=== PATIENT | female | born 1955 | race Caucasian/White ===

== ENCOUNTER 2016-09-24 07:28 | Emergency (ER) | payer OTHER ==
[~2016-09-24] VITALS: Ht 167.6 cm; Wt 167.0 kg
[~2016-09-24 07:28] MED LIST: ALBU1.25 NEB; ALBU18HF INH; ALPR1TAB2 PO; AMLO5TAB2 PO; ATOR40TA78 PO; CEFD300C2 PO; CIPR500T3 PO; CIPR750T PO; DOXY100C2 PO; FLUT1BLS INH; FURO80TA77 PO; HYDR-3241 PO; HYDR-3341 PO; INSU100I18 SQ-INSULIN; INSU100I28 SQ-INSULIN; METF500T PO; POTA20TA6 PO; PRED20TA PO; PRED5TAB PO; SERT25TA PO
[2016-09-24] MEDS ORDERED: BUDE10.2 INH (08:10)
[2016-09-24] MEDS ORDERED: methylPREDNISolone SOD SUCC 125 MG/2 ML ONE (08:37)
[2016-09-24] MEDS ORDERED: ALBUTEROL/IPRATROPIUM 2.5MG/0.5MG, 3 ML ONE (08:45)
[2016-09-24] MEDS ORDERED: methylPREDNISolone SOD SUCC 125 MG/2 ML IVP ONE (09:00)
[2016-09-24 09:06] LABS: RAPID INFLUENZA A Negative (Negative); RAPID INFLUENZA B Negative (Negative)
[2016-09-24 09:09] LABS: HEMOGLOBIN 13.4 g/dL (11.7-16.4)
[2016-09-24 09:23] LABS: ASPARTATE AMINO TRANSFERASE 12 U/L (15-37); BLOOD UREA NITROGEN 10 mg/dL (7-18)
[2016-09-24] MEDS ORDERED: ALBUTEROL/IPRATROPIUM 2.5MG/0.5MG, 3 ML NEB ONE (09:30)
[2016-09-24] MEDS ORDERED: SODIUM CHLORIDE FLUSH 10ML SYR IVF ONE (09:30)
[2016-09-24] MEDS ORDERED: LORazepam 1MG TABLET ONE (09:56)
[2016-09-24] MEDS ORDERED: LORazepam 1MG TABLET PO ONE (10:00)
[2016-09-24] MEDS ORDERED: CEFTRIAXONE PMX 1GM/50ML 50 ML ONE (11:26)
[2016-09-24] MEDS ORDERED: CEFTRIAXONE PMX 1GM/50ML 50 ML IV ONE (11:30)
[2016-09-24 11:34] VITALS: BP 133/78
== END 2016-09-24 12:39 | disposition home or self-care (01) ==
LOC: ED 10:32
DX: J45.901 Unspecified asthma with (acute) exacerbation (principal); J44.1 Chronic obstructive pulmonary disease with (acute) exacerbation; J01.00 Acute maxillary sinusitis, unspecified; J20.8 Acute bronchitis due to other specified organisms; E11.9 Type 2 diabetes mellitus without complications
CPT/HCPCS: 36415; 71010; 80053; 85025; 87040; 87081; 87400; 87880; 94640; 96365; 96375; 99285; J0696; J2930; J7620

== ENCOUNTER → 2016-10-13 | Outpatient (CLI) | payer OTHER, MEDICARE ==
[~2016-10-13] MED LIST changes: +BUDE10.2 INH
== END | disposition home or self-care (01) ==
LOC: CARD 14:10
PROVIDERS: ATTEND Nurse Practitioner
DX: J44.9 Chronic obstructive pulmonary disease, unspecified (principal)
CPT/HCPCS: 94060; 94620; 94726; 94729

== ENCOUNTER 2017-03-14 15:09 | Inpatient (IN) | payer MEDICARE, OTHER ==
[~2017-03-14] VITALS: Ht 167.6 cm; Wt 178.0 kg
[~2017-03-14 15:09] MED LIST changes: -CEFD300C2 PO; +CEFD300C37 PO
[2017-03-14] MEDS ORDERED: OXYC20TA2 PO (15:36)
[2017-03-14] MEDS ORDERED: ATOR10TA PO (15:36)
[2017-03-14] MEDS ORDERED: METF500T4 PO (15:36)
[2017-03-14] MEDS ORDERED: FAMOTIDINE 20 MG/2 ML ONE (15:45)
[2017-03-14] MEDS ORDERED: ONDANSETRON 2MG/ML, 2ML ONE (15:45)
[2017-03-14] MEDS ORDERED: FAMOTIDINE 20 MG/2 ML IVP ONE (16:00)
[2017-03-14] MEDS ORDERED: ONDANSETRON 2MG/ML, 2ML IVPush ONE (16:00)
[2017-03-14] MEDS ORDERED: SODIUM CHLORIDE FLUSH 10ML SYR IVF ONE (16:00)
[2017-03-14] MEDS ORDERED: SODIUM CHLORIDE 0.9% 1,000ML IVBOLUS ONE (16:00)
[2017-03-14 16:15] LABS: HEMATOCRIT 43.7 % (34.6-47.8); HEMOGLOBIN 14.4 g/dL (11.7-16.4); WHITE BLOOD COUNT 16.5 x10^3/uL (3.4-10)
[2017-03-14 16:27] LABS: BLOOD UREA NITROGEN 15 mg/dL (7-18)
[2017-03-14 16:31] LABS: ASPARTATE AMINO TRANSFERASE 23 U/L (15-37)
[2017-03-14] MEDS ORDERED: METRONIDAZOLE PMX 500MG/100ML 100 ML ONE ×2 (17:18)
[2017-03-14] MEDS ORDERED: CEFTRIAXONE PMX 1GM/50ML 50 ML ONE (17:19)
[2017-03-14] MEDS ORDERED: LORazepam 2 MG/ML, 1ML ONE (17:19)
[2017-03-14] MEDS ORDERED: CEFTRIAXONE PMX 1GM/50ML 50 ML IV ONE (17:30)
[2017-03-14] MEDS ORDERED: LORazepam 2 MG/ML, 1ML IVPush ONE (17:30)
[2017-03-14] MEDS ORDERED: METRONIDAZOLE PMX 500MG/100ML 100 ML IV ONE (17:30)
[2017-03-14] MEDS ORDERED: ONDANSETRON ODT 4 MG PO PRN (18:30)
[2017-03-14] MEDS ORDERED: LABETALOL 5MG/ML, 20ML IVPush PRN (18:30)
[2017-03-14] MEDS ORDERED: morphine SULFATE 10 MG/ML, 1ML IVPush PRN (18:30)
[2017-03-14] MEDS ORDERED: GUAIFENESIN/DM 200-20MG, 10ML UDC PO PRN (18:30)
[2017-03-14] MEDS ORDERED: ONDANSETRON 2MG/ML, 2ML IVPush PRN (18:30)
[2017-03-14 19:45] VITALS: BP 135/95
[2017-03-14 19:56] VITALS: BP 136/95
[2017-03-14] MEDS ORDERED: OXYCODONE MC SCH (20:30)
[2017-03-14] MEDS ORDERED: TEMPLATE NON-FORMULARY MED. (Budesonide/Formoterol Fumarate (Symbicort 160-4.5 Mcg Inhaler INH SCH (21:00)
[2017-03-14] MEDS ORDERED: ALBUTEROL SULFATE 2.5 MG/3 ML NPPB PRN (21:00)
[2017-03-14] MEDS: TEMPLATE NON-FORMULARY MED. (Albuterol Sulfate (Ventolin Hfa) 2 PUFFS) INH SCH (21:00)
[2017-03-14] MEDS: CEFTRIAXONE PMX 2GM/50ML 50 ML IV SCH (21:01)
[2017-03-14] MEDS: SODIUM CHLORIDE 0.9% 1,000 ML IV SCH (21:01)
[2017-03-14] MEDS: ENOXAPARIN 40 MG/0.4 ML SQ SCH (21:32)
[2017-03-14] MEDS: ATORVASTATIN 10 MG TABLET PO SCH (21:33)
[2017-03-14] MEDS: OXYcodone IR 5MG TABLET PO PRN (21:33)
[2017-03-14] MEDS: INSULIN ASPART 100 UNITS/ML, PEN SQ-INSULIN SCH (21:43)
[2017-03-15 01:10] VITALS: BP 137/81
[2017-03-15] MEDS: ALBUTEROL SULFATE 2.5 MG/3 ML NPPB SCH ×5 (01:59→19:45)
[2017-03-15] MEDS: TEMPLATE NON-FORMULARY MED. (Albuterol Sulfate (Ventolin Hfa) 2 PUFFS) INH SCH ×4 (06:00→20:38)
[2017-03-15] MEDS: SODIUM CHLORIDE 0.9% 1,000 ML IV SCH ×2 (06:29→14:51)
[2017-03-15 07:57] VITALS: BP 134/80
[2017-03-15] MEDS: SERTRALINE 100MG TABLET PO SCH (08:17)
[2017-03-15] MEDS: INSULIN ASPART 100 UNITS/ML, PEN SQ-INSULIN SCH ×4 (08:17→20:41)
[2017-03-15 09:07] LABS: HEMATOCRIT 39.1 % (34.6-47.8); WHITE BLOOD COUNT 11.6 x10^3/uL (3.4-10)
[2017-03-15] MEDS: FLUTICASONE/VILANTEROL 200-25MCG/INH INH SCH (09:26)
[2017-03-15] MEDS: INSULIN DETEMIR 100 UNITS/ML, PEN SQ-INSULIN SCH ×2 (09:27→20:40)
[2017-03-15] MEDS: OXYcodone IR 5MG TABLET PO PRN ×2 (11:26→20:41)
[2017-03-15 12:12] VITALS: BP 125/56
[2017-03-15] MEDS: ENOXAPARIN 40 MG/0.4 ML SQ SCH (17:20)
[2017-03-15 18:35] VITALS: BP 125/71
[2017-03-15] MEDS: CEFTRIAXONE PMX 2GM/50ML 50 ML IV SCH (19:13)
[2017-03-15] MEDS: ATORVASTATIN 10 MG TABLET PO SCH (20:39)
[2017-03-16] MEDS: SODIUM CHLORIDE 0.9% 1,000 ML IV SCH ×2 (00:33→10:41)
[2017-03-16 02:10] VITALS: BP 110/61
[2017-03-16] MEDS: TEMPLATE NON-FORMULARY MED. (Albuterol Sulfate (Ventolin Hfa) 2 PUFFS) INH SCH ×4 (04:56→19:53)
[2017-03-16 06:01] LABS: HEMATOCRIT 40.1 % (34.6-47.8); HEMOGLOBIN 13.3 g/dL (11.7-16.4); WHITE BLOOD COUNT 10.5 x10^3/uL (3.4-10)
[2017-03-16 06:05] LABS: BLOOD UREA NITROGEN 14 mg/dL (7-18)
[2017-03-16] MEDS: ALBUTEROL SULFATE 2.5 MG/3 ML NPPB SCH ×3 (07:00→18:52)
[2017-03-16] MEDS: SERTRALINE 100MG TABLET PO SCH (07:44)
[2017-03-16] MEDS: FLUTICASONE/VILANTEROL 200-25MCG/INH INH SCH (07:45)
[2017-03-16] MEDS: INSULIN ASPART 100 UNITS/ML, PEN SQ-INSULIN SCH ×4 (07:46→20:22)
[2017-03-16] MEDS: INSULIN DETEMIR 100 UNITS/ML, PEN SQ-INSULIN SCH ×2 (07:47→20:22)
[2017-03-16 08:20] VITALS: BP 119/66
[2017-03-16] MEDS: OXYcodone IR 5MG TABLET PO PRN ×2 (08:36→20:21)
[2017-03-16 15:04] VITALS: BP 123/51
[2017-03-16] MEDS ORDERED: SODIUM CHLORIDE 0.9% 1,000 ML IV SCH (17:00)
[2017-03-16] MEDS: CEFTRIAXONE PMX 2GM/50ML 50 ML IV SCH (18:21)
[2017-03-16] MEDS: ENOXAPARIN 40 MG/0.4 ML SQ SCH (18:21)
[2017-03-16 20:19] VITALS: BP 128/55
[2017-03-16] MEDS: ATORVASTATIN 10 MG TABLET PO SCH (20:21)
[2017-03-17] MEDS: ALBUTEROL SULFATE 2.5 MG/3 ML NEB PRN ×2 (01:18→16:40)
[2017-03-17 04:10] VITALS: BP 140/67
[2017-03-17 04:41] LABS: HEMATOCRIT 37.9 % (34.6-47.8); HEMOGLOBIN 12.5 g/dL (11.7-16.4); WHITE BLOOD COUNT 10.9 x10^3/uL (3.4-10)
[2017-03-17 05:12] LABS: ASPARTATE AMINO TRANSFERASE 25 U/L (15-37); BLOOD UREA NITROGEN 12 mg/dL (7-18)
[2017-03-17] MEDS: TEMPLATE NON-FORMULARY MED. (Albuterol Sulfate (Ventolin Hfa) 2 PUFFS) INH SCH ×4 (05:19→19:46)
[2017-03-17 07:08] VITALS: BP 132/82
[2017-03-17] MEDS: ALBUTEROL SULFATE 2.5 MG/3 ML NPPB SCH ×2 (08:00→20:08)
[2017-03-17] MEDS: SERTRALINE 100MG TABLET PO SCH (08:38)
[2017-03-17] MEDS: OXYcodone IR 5MG TABLET PO PRN ×2 (08:39→21:04)
[2017-03-17] MEDS: FLUTICASONE/VILANTEROL 200-25MCG/INH INH SCH (08:39)
[2017-03-17] MEDS: INSULIN ASPART 100 UNITS/ML, PEN SQ-INSULIN SCH ×4 (08:40→19:54)
[2017-03-17] MEDS: INSULIN DETEMIR 100 UNITS/ML, PEN SQ-INSULIN SCH ×2 (08:41→19:54)
[2017-03-17 13:26] VITALS: BP 145/62
[2017-03-17] MEDS: ENOXAPARIN 40 MG/0.4 ML SQ SCH (17:32)
[2017-03-17] MEDS: CEFTRIAXONE PMX 2GM/50ML 50 ML IV SCH (18:28)
[2017-03-17] MEDS: ATORVASTATIN 10 MG TABLET PO SCH (19:53)
[2017-03-17 20:15] VITALS: BP 122/58
[2017-03-18 01:00] VITALS: BP 146/83
[2017-03-18] MEDS: TEMPLATE NON-FORMULARY MED. (Albuterol Sulfate (Ventolin Hfa) 2 PUFFS) INH SCH ×2 (04:39→11:00)
[2017-03-18 05:49] LABS: HEMATOCRIT 37.1 % (34.6-47.8); HEMOGLOBIN 12.5 g/dL (11.7-16.4); WHITE BLOOD COUNT 9.5 x10^3/uL (3.4-10)
[2017-03-18 06:01] LABS: BLOOD UREA NITROGEN 10 mg/dL (7-18)
[2017-03-18 06:05] LABS: ASPARTATE AMINO TRANSFERASE 24 U/L (15-37)
[2017-03-18 06:50] VITALS: BP 138/69
[2017-03-18] MEDS ORDERED: CIPR500T3 PO (07:19)
[2017-03-18] MEDS ORDERED: POTA10CA PO (07:19)
[2017-03-18] MEDS ORDERED: FURO40TA6 PO (07:19)
[2017-03-18] MEDS ORDERED: METR500T PO (07:19)
[2017-03-18] MEDS ORDERED: FURO80TA77 PO (07:22)
[2017-03-18] MEDS ORDERED: OXYC20TA2 PO (07:22)
[2017-03-18] MEDS ORDERED: CEFD300C37 PO (07:27)
[2017-03-18] MEDS ORDERED: FUROSEMIDE 20 MG/2 ML IV ONE (07:30)
[2017-03-18] MEDS: SERTRALINE 100MG TABLET PO SCH (08:34)
[2017-03-18] MEDS: FLUTICASONE/VILANTEROL 200-25MCG/INH INH SCH (08:34)
[2017-03-18] MEDS: INSULIN ASPART 100 UNITS/ML, PEN SQ-INSULIN SCH ×2 (08:35→12:05)
[2017-03-18] MEDS: INSULIN DETEMIR 100 UNITS/ML, PEN SQ-INSULIN SCH (08:35)
[2017-03-18] MEDS: OXYcodone IR 5MG TABLET PO PRN (08:58)
[2017-03-18] MEDS ORDERED: FUROSEMIDE 40 MG TABLET PO SCH (09:00)
[2017-03-18] MEDS: ALBUTEROL SULFATE 2.5 MG/3 ML NPPB SCH (09:16)
[2017-03-18] MEDS ORDERED: POTA10TA5 PO (13:17)
[2017-03-18] MEDS ORDERED: PRED20TA PO (15:03)
== END 2017-03-18 13:38 | disposition home or self-care (01) | DRG 291 ==
LOC: ED 18:53 → EDIP 19:57 → 4WST 20:09 → DCLOUNGE 03-18 12:55
PROVIDERS: ADMIT Hospitalist; ATTEND Hospitalist
PROC: 0T9B70Z Drainage of Bladder with Drainage Device, Via Natural or Artificial Opening (ICD-10-PCS; principal; 2017-03-14)
DX: I11.0 Hypertensive heart disease with heart failure (principal); J96.01 Acute respiratory failure with hypoxia; E86.0 Dehydration; J44.1 Chronic obstructive pulmonary disease with (acute) exacerbation; Z99.81 Dependence on supplemental oxygen; Z68.44 Body mass index [BMI] 60.0-69.9, adult; N10 Acute pyelonephritis; I50.30 Unspecified diastolic (congestive) heart failure; E11.9 Type 2 diabetes mellitus without complications; E78.5 Hyperlipidemia, unspecified; E66.01 Morbid (severe) obesity due to excess calories; F32.9 Major depressive disorder, single episode, unspecified; F41.9 Anxiety disorder, unspecified; M19.90 Unspecified osteoarthritis, unspecified site; Z90.710 Acquired absence of both cervix and uterus; R19.7 Diarrhea, unspecified
CPT/HCPCS: 36415; 71010; 80048; 80053; 80061; 81001; 82040; 82962; 83036; 83690; 83735; 85025; 87077; 87086; 87186; 87324; 89055; 93306; 94640; 96361; 96365; 96368; 96375; J0696; J1650; J1815; J2405; J7613; J1940; J2060; J7030; S0028

== ENCOUNTER 2017-06-02 18:14 | Inpatient (IN) | payer MEDICARE ==
[~2017-06-02] VITALS: Ht 167.6 cm; Wt 169.4 kg
[~2017-06-02 18:14] MED LIST changes: +ATOR10TA PO; +FURO40TA6 PO; +METF500T4 PO; +METR500T PO; +OXYC20TA2 PO; +POTA10CA PO; +POTA10TA5 PO
[2017-06-02] MEDS ORDERED: ALBUTEROL/IPRATROPIUM 2.5MG/0.5MG, 3 ML ONE ×2 (18:34→23:30)
[2017-06-02 18:51] LABS: MEAN CORPUSCULAR HEMOGLOBIN 29.6 pg (27.0-34.8); MEAN CORPUSCULAR HGB CONC 32.7 g/dL (32.4-35.8); MEAN CORPUSCULAR VOLUME 90.5 fL (80-100); MEAN PLATELET VOLUME 8.3 fL (7.4-10.4); PLATELET COUNT 321 x10^3/uL (130-400); RED CELL DISTRIBUTION WIDTH 14.1 % (9.6-15.2)
[2017-06-02] MEDS ORDERED: METF500T4 PO (18:53)
[2017-06-02 19:04] LABS: ALBUMIN 3.4 g/dL (3.4-5.0); ANION GAP 13 mmol/L (5-15); CALCIUM 9.1 mg/dL (8.5-10.1); CHLORIDE 99 mmol/L (98-107); CREATININE 0.86 mg/dL (0.55-1.02)
[2017-06-02 19:08] LABS: TROPONIN I < 0.015 ng/mL (0.000-0.045)
[2017-06-02 19:17] LABS: BASOPHILS # (AUTO) 0.09 x10^3/uL (0-0.1); BASOPHILS % (AUTO) 1 % (0-1); EOSINOPHILS # (AUTO) 0.12 x10^3/uL (0-0.4); EOSINOPHILS % (AUTO) 1 % (1-7); LYMPHOCYTES # (AUTO) 2.04 x10^3/uL (1-3.4); LYMPHOCYTES % (AUTO) 11 % (22-44); MD SCAN; MONOCYTES # (AUTO) 0.91 x10^3/uL (0.2-0.8); MONOCYTES % (AUTO) 5 % (2-9); NEUTROPHILS # (AUTO) 16.06 x10^3/uL (1.8-6.8); NEUTROPHILS % (AUTO) 84 % (42-75)
[2017-06-02] MEDS ORDERED: SODIUM CHLORIDE 0.9% 1,000ML IVBOLUS ONE ×2 (19:30→21:30)
[2017-06-02] MEDS ORDERED: CEFTRIAXONE PMX 1GM/50ML 50 ML IV ONE (20:00)
[2017-06-02] MEDS ORDERED: AZITHROMYCIN 500 MG in SODIUM CHLORIDE 0.9% 250 ML IV ONE (20:00)
[2017-06-02] MEDS ORDERED: CEFTRIAXONE PMX 1GM/50ML 50 ML ONE (20:07)
[2017-06-02] MEDS ORDERED: OMNIPAQUE 350 MG/ML, 100ML BOTTLE ONE (20:47)
[2017-06-02] MEDS ORDERED: SODIUM CHLORIDE 0.9% 1,000 ML IV ONE (21:27)
[2017-06-02] MEDS ORDERED: MORPHINE SULFATE 4 MG/ML, 1ML IVPush PRN (21:30)
[2017-06-02] MEDS ORDERED: ONDANSETRON 2MG/ML, 2ML IVPush PRN (21:30)
[2017-06-02] MEDS ORDERED: POLYETHYLENE GLYCOL 17 GM PACKET PO PRN (22:00)
[2017-06-02] MEDS ORDERED: ENALAPRILAT 1.25 MG/ML, 2ML IVPush PRN (22:00)
[2017-06-02] MEDS ORDERED: GUAIFENESIN/DM 200-20MG, 10ML UDC PO PRN (22:00)
[2017-06-02] MEDS ORDERED: ACETAMINOPHEN 325 MG TABLET PO PRN (22:00)
[2017-06-02] MEDS ORDERED: TEMAZEPAM 15 MG CAPSULE PO PRN (22:00)
[2017-06-02] MEDS ORDERED: ONDANSETRON ODT 4 MG PO PRN (22:00)
[2017-06-02 22:05] VITALS: BP 170/77
[2017-06-02] MEDS: ALBUTEROL/IPRATROPIUM 2.5MG/0.5MG, 3 ML NPPB SCH (23:33)
[2017-06-03 01:24] VITALS: BP 137/66
[2017-06-03] MEDS: ENOXAPARIN 40 MG/0.4 ML SQ SCH ×2 (01:25→22:05)
[2017-06-03] MEDS: INSULIN ASPART 100 UNITS/ML, PEN SQ-INSULIN SCH ×5 (01:26→20:43)
[2017-06-03 06:05] VITALS: BP 122/66
[2017-06-03 06:34] LABS: BASOPHILS # (AUTO) 0.07 x10^3/uL (0-0.1); BASOPHILS % (AUTO) 0 % (0-1); EOSINOPHILS % (AUTO) 1 % (1-7); LYMPHOCYTES # (AUTO) 1.73 x10^3/uL (1-3.4); LYMPHOCYTES % (AUTO) 11 % (22-44); MD NO; MEAN CORPUSCULAR HEMOGLOBIN 30.1 pg (27.0-34.8); MEAN CORPUSCULAR HGB CONC 33.2 g/dL (32.4-35.8); MEAN CORPUSCULAR VOLUME 90.7 fL (80-100); MEAN PLATELET VOLUME 8.4 fL (7.4-10.4); MONOCYTES # (AUTO) 0.97 x10^3/uL (0.2-0.8); MONOCYTES % (AUTO) 6 % (2-9); NEUTROPHILS # (AUTO) 13.47 x10^3/uL (1.8-6.8); NEUTROPHILS % (AUTO) 83 % (42-75); PLATELET COUNT 270 x10^3/uL (130-400); RED BLOOD COUNT 4.23 x10^6/uL (3.82-5.3); RED CELL DISTRIBUTION WIDTH 14.3 % (9.6-15.2)
[2017-06-03 06:44] LABS: ANION GAP 6 mmol/L (5-15); CALCIUM 8.7 mg/dL (8.5-10.1); CHLORIDE 102 mmol/L (98-107); CREATININE 0.75 mg/dL (0.55-1.02)
[2017-06-03] MEDS ORDERED: ALBUTEROL/IPRATROPIUM 2.5MG/0.5MG, 3 ML NPPB SCH (07:00)
[2017-06-03] MEDS: TEMPLATE NON-FORMULARY MED. (Budesonide/Formoterol Fumarate (Symbicort 160-4.5 Mcg Inhaler INH SCH ×2 (08:06→20:40)
[2017-06-03] MEDS: ALBUTEROL/IPRATROPIUM 2.5MG/0.5MG, 3 ML NPPB SCH ×5 (08:52→22:00)
[2017-06-03] MEDS: FLUTICASONE/VILANTEROL 200-25MCG/INH INH SCH (08:53)
[2017-06-03] MEDS: CEFTRIAXONE PMX 1GM/50ML 50 ML IV SCH ×2 (08:53→20:40)
[2017-06-03] MEDS: POTASSIUM CHLORIDE 10 MEQ TABLET.ER PO SCH (08:54)
[2017-06-03] MEDS: SERTRALINE 100MG TABLET PO SCH (08:54)
[2017-06-03] MEDS: FUROSEMIDE 80 MG TABLET PO SCH (08:54)
[2017-06-03] MEDS: OXYcodone/APAP 5/325MG TABLET PO PRN ×3 (08:55→22:05)
[2017-06-03] MEDS ORDERED: FLUTICASONE/VILANTEROL 200-25MCG/INH INH SCH (09:00)
[2017-06-03 09:30] VITALS: BP 150/75
[2017-06-03 14:40] VITALS: BP 162/96
[2017-06-03 18:45] VITALS: BP 143/67
[2017-06-03] MEDS ORDERED: POLYETHYLENE GLYCOL 17 GM PACKET PO PRN (20:00)
[2017-06-03] MEDS ORDERED: TEMAZEPAM 15 MG CAPSULE PO PRN (20:00)
[2017-06-03] MEDS ORDERED: ONDANSETRON ODT 4 MG PO PRN (20:00)
[2017-06-03] MEDS: ATORVASTATIN 10 MG TABLET PO SCH (20:40)
[2017-06-03] MEDS: AZITHROMYCIN 500 MG in SODIUM CHLORIDE 0.9% 250 ML IV SCH (22:05)
[2017-06-04 02:00] VITALS: BP 115/65
[2017-06-04] MEDS: OXYcodone/APAP 5/325MG TABLET PO PRN ×4 (04:12→20:35)
[2017-06-04 05:14] LABS: ANION GAP 7 mmol/L (5-15); CALCIUM 8.6 mg/dL (8.5-10.1); CHLORIDE 103 mmol/L (98-107); CREATININE 0.58 mg/dL (0.55-1.02)
[2017-06-04 05:17] LABS: BASOPHILS # (AUTO) 0.09 x10^3/uL (0-0.1); BASOPHILS % (AUTO) 1 % (0-1); EOSINOPHILS # (AUTO) 0.18 x10^3/uL (0-0.4); EOSINOPHILS % (AUTO) 2 % (1-7); LYMPHOCYTES # (AUTO) 1.25 x10^3/uL (1-3.4); LYMPHOCYTES % (AUTO) 10 % (22-44); MD NO; MEAN CORPUSCULAR HEMOGLOBIN 30.2 pg (27.0-34.8); MEAN CORPUSCULAR VOLUME 91.4 fL (80-100); MEAN PLATELET VOLUME 8.2 fL (7.4-10.4); MONOCYTES # (AUTO) 0.67 x10^3/uL (0.2-0.8); MONOCYTES % (AUTO) 5 % (2-9); NEUTROPHILS # (AUTO) 10.21 x10^3/uL (1.8-6.8); NEUTROPHILS % (AUTO) 82 % (42-75); PLATELET COUNT 249 x10^3/uL (130-400); RED CELL DISTRIBUTION WIDTH 14.5 % (9.6-15.2)
[2017-06-04] MEDS: ALBUTEROL/IPRATROPIUM 2.5MG/0.5MG, 3 ML NPPB SCH ×5 (07:02→22:00)
[2017-06-04 08:00] VITALS: BP 123/58
[2017-06-04] MEDS: SERTRALINE 100MG TABLET PO SCH (08:09)
[2017-06-04] MEDS: FUROSEMIDE 80 MG TABLET PO SCH (08:09)
[2017-06-04] MEDS: FLUTICASONE/VILANTEROL 200-25MCG/INH INH SCH (08:09)
[2017-06-04] MEDS: POTASSIUM CHLORIDE 10 MEQ TABLET.ER PO SCH (08:09)
[2017-06-04] MEDS: INSULIN ASPART 100 UNITS/ML, PEN SQ-INSULIN SCH ×4 (08:10→20:35)
[2017-06-04] MEDS: TEMPLATE NON-FORMULARY MED. (Budesonide/Formoterol Fumarate (Symbicort 160-4.5 Mcg Inhaler INH SCH ×2 (09:00→19:39)
[2017-06-04] MEDS: CEFTRIAXONE PMX 1GM/50ML 50 ML IV SCH ×2 (09:11→20:34)
[2017-06-04 15:30] VITALS: BP 139/78
[2017-06-04] MEDS ORDERED: POLYETHYLENE GLYCOL 17 GM PACKET PO PRN (20:00)
[2017-06-04] MEDS ORDERED: GUAIFENESIN/DM 200-20MG, 10ML UDC PO PRN (20:00)
[2017-06-04] MEDS ORDERED: ONDANSETRON ODT 4 MG PO PRN (20:00)
[2017-06-04] MEDS ORDERED: ACETAMINOPHEN 325 MG TABLET PO PRN (20:00)
[2017-06-04] MEDS ORDERED: ENALAPRILAT 1.25 MG/ML, 2ML IVPush PRN (20:00)
[2017-06-04] MEDS: ATORVASTATIN 10 MG TABLET PO SCH (20:34)
[2017-06-04 21:40] VITALS: BP 117/73
[2017-06-04] MEDS: AZITHROMYCIN 500 MG in SODIUM CHLORIDE 0.9% 250 ML IV SCH (22:15)
[2017-06-04] MEDS: ENOXAPARIN 40 MG/0.4 ML SQ SCH (22:15)
[2017-06-05] MEDS: ALBUTEROL/IPRATROPIUM 2.5MG/0.5MG, 3 ML NPPB SCH ×4 (03:34→11:18)
[2017-06-05 04:11] VITALS: BP 112/62
[2017-06-05 05:08] LABS: BASOPHILS # (AUTO) 0.05 x10^3/uL (0-0.1); BASOPHILS % (AUTO) 0 % (0-1); EOSINOPHILS # (AUTO) 0.09 x10^3/uL (0-0.4); EOSINOPHILS % (AUTO) 1 % (1-7); LYMPHOCYTES # (AUTO) 1.53 x10^3/uL (1-3.4); LYMPHOCYTES % (AUTO) 12 % (22-44); MD NO; MEAN CORPUSCULAR HEMOGLOBIN 30.3 pg (27.0-34.8); MEAN CORPUSCULAR HGB CONC 33.2 g/dL (32.4-35.8); MEAN CORPUSCULAR VOLUME 91.4 fL (80-100); MEAN PLATELET VOLUME 8.4 fL (7.4-10.4); MONOCYTES # (AUTO) 0.82 x10^3/uL (0.2-0.8); MONOCYTES % (AUTO) 6 % (2-9); NEUTROPHILS # (AUTO) 10.46 x10^3/uL (1.8-6.8); NEUTROPHILS % (AUTO) 81 % (42-75); PLATELET COUNT 266 x10^3/uL (130-400); RED BLOOD COUNT 3.95 x10^6/uL (3.82-5.3)
[2017-06-05 05:23] LABS: ANION GAP 1 mmol/L (5-15); CHLORIDE 102 mmol/L (98-107); CREATININE 0.75 mg/dL (0.55-1.02)
[2017-06-05 06:48] VITALS: BP 128/72
[2017-06-05] MEDS: CEFTRIAXONE PMX 1GM/50ML 50 ML IV SCH (08:46)
[2017-06-05] MEDS: FLUTICASONE/VILANTEROL 200-25MCG/INH INH SCH (08:46)
[2017-06-05] MEDS: TEMPLATE NON-FORMULARY MED. (Budesonide/Formoterol Fumarate (Symbicort 160-4.5 Mcg Inhaler INH SCH (08:46)
[2017-06-05] MEDS: INSULIN ASPART 100 UNITS/ML, PEN SQ-INSULIN SCH ×2 (08:46→11:56)
[2017-06-05] MEDS: FUROSEMIDE 80 MG TABLET PO SCH (08:47)
[2017-06-05] MEDS: POTASSIUM CHLORIDE 10 MEQ TABLET.ER PO SCH (08:47)
[2017-06-05] MEDS: SERTRALINE 100MG TABLET PO SCH (08:48)
[2017-06-05] MEDS: OXYcodone/APAP 5/325MG TABLET PO PRN (08:48)
[2017-06-05] MEDS ORDERED: metFORMIN 500 MG TABLET PO SCH (09:00)
[2017-06-05] MEDS ORDERED: AZIT500T5 PO (09:47)
[2017-06-05] MEDS ORDERED: PRED20TA PO (09:47)
[2017-06-05] MEDS ORDERED: AMOX-291 PO (09:47)
[2017-06-05] MEDS ORDERED: PNEUMOCOCCAL 23 VACCINE IM-VACC ONE (13:00)
== END 2017-06-05 15:01 | disposition home or self-care (01) | DRG 871 ==
LOC: ED 18:47 → EDIP 21:45 → 4WST 22:03
PROVIDERS: ADMIT Family Medicine; ATTEND Family Medicine
PROC: 3E0234Z Introduction of Serum, Toxoid and Vaccine into Muscle, Percutaneous Approach (ICD-10-PCS; principal; 2017-06-05)
DX: A41.9 Sepsis, unspecified organism (principal); J96.21 Acute and chronic respiratory failure with hypoxia; E87.2 Acidosis; J15.9 Unspecified bacterial pneumonia; E11.21 Type 2 diabetes mellitus with diabetic nephropathy; I50.32 Chronic diastolic (congestive) heart failure; N12 Tubulo-interstitial nephritis, not specified as acute or chronic; F33.9 Major depressive disorder, recurrent, unspecified; J44.1 Chronic obstructive pulmonary disease with (acute) exacerbation; J44.0 Chronic obstructive pulmonary disease with (acute) lower respiratory infection; Z68.44 Body mass index [BMI] 60.0-69.9, adult; E11.65 Type 2 diabetes mellitus with hyperglycemia; E66.01 Morbid (severe) obesity due to excess calories; E78.5 Hyperlipidemia, unspecified; F06.4 Anxiety disorder due to known physiological condition; G47.30 Sleep apnea, unspecified; Z99.81 Dependence on supplemental oxygen; Z80.1 Family history of malignant neoplasm of trachea, bronchus and lung; Z82.49 Family history of ischemic heart disease and other diseases of the circulatory system; Z86.718 Personal history of other venous thrombosis and embolism; Z87.891 Personal history of nicotine dependence; Z90.710 Acquired absence of both cervix and uterus; Z23 Encounter for immunization
CPT/HCPCS: 36415; 71010; 71275; 80048; 82040; 82962; 83605; 83880; 84145; 84484; 85025; 87040; 90732; 93005; 94640; 96365; J0456; J0696; J1650; J1815; J7620; Q9967; J7030; J7050; J7512

== ENCOUNTER 2018-04-03 11:41 | Inpatient (IN) | payer MEDICARE ==
[~2018-04-03] VITALS: Ht 167.6 cm; Wt 175.3 kg
[~2018-04-03 11:41] MED LIST changes: -AMLO5TAB2 PO; +AMLO5TAB7 PO; +AMOX-291 PO; +AZIT500T5 PO; +METF500T17 PO; -METF500T4 PO
[2018-04-03 12:29] LABS: BASOPHILS # (AUTO) 0.03 x10^3/uL (0-0.1); BASOPHILS % (AUTO) 0 % (0-1); EOSINOPHILS # (AUTO) 0.17 x10^3/uL (0-0.4); EOSINOPHILS % (AUTO) 1 % (1-7); LYMPHOCYTES # (AUTO) 1.21 x10^3/uL (1-3.4); LYMPHOCYTES % (AUTO) 10 % (22-44); MD NO; MEAN CORPUSCULAR HGB CONC 33.2 g/dL (32.4-35.8); MEAN CORPUSCULAR VOLUME 93.5 fL (80-100); MEAN PLATELET VOLUME 8.4 fL (7.4-10.4); MONOCYTES # (AUTO) 0.72 x10^3/uL (0.2-0.8); MONOCYTES % (AUTO) 6 % (2-9); NEUTROPHILS # (AUTO) 10.53 x10^3/uL (1.8-6.8); NEUTROPHILS % (AUTO) 83 % (42-75); PLATELET COUNT 314 x10^3/uL (130-400); RED BLOOD COUNT 4.16 x10^6/uL (3.82-5.3); RED CELL DISTRIBUTION WIDTH 14.4 % (9.6-15.2)
[2018-04-03] MEDS ORDERED: SODIUM CHLORIDE FLUSH 10ML SYR IVF ONE (12:30)
[2018-04-03 12:39] LABS: ALANINE AMINOTRANSFERASE 37 U/L (12-78); ALBUMIN 3.6 g/dL (3.4-5.0); ANION GAP 6 mmol/L (5-15); CALCIUM 8.6 mg/dL (8.5-10.1); CHLORIDE 101 mmol/L (98-107)
[2018-04-03 12:44] LABS: ALKALINE PHOSPHATASE 110 U/L (45-117); BILIRUBIN,TOTAL 0.2 mg/dL (0.2-1.0); CREATININE 0.87 mg/dL (0.55-1.02); TOTAL PROTEIN 6.8 g/dL (6.4-8.2); TROPONIN I < 0.015 ng/mL (0.000-0.045)
[2018-04-03] MEDS ORDERED: PLEASE ENTER WEIGHT MC SCH (13:00)
[2018-04-03] MEDS ORDERED: ALBUTEROL/IPRATROPIUM 2.5MG/0.5MG, 3 ML ONE ×2 (13:04→15:31)
[2018-04-03] MEDS ORDERED: ALBUTEROL/IPRATROPIUM 2.5MG/0.5MG, 3 ML NPPB PRN (13:05)
[2018-04-03] MEDS ORDERED: HYDR-3240 PO (13:35)
[2018-04-03] MEDS ORDERED: SODIUM CHLORIDE FLUSH 10ML SYR IVF PRN (14:00)
[2018-04-03] MEDS ORDERED: LORazepam 2 MG/ML, 1ML ONE (14:15)
[2018-04-03] MEDS ORDERED: POLYETHYLENE GLYCOL 17 GM PACKET PO PRN (14:30)
[2018-04-03] MEDS ORDERED: GLUCAGON 1 MG IM PRN (14:30)
[2018-04-03] MEDS ORDERED: ACETAMINOPHEN 325 MG TABLET PO PRN (14:30)
[2018-04-03] MEDS ORDERED: HYDROcodone/APAP 5/325 TABLET PO SCH (14:30)
[2018-04-03] MEDS ORDERED: GUAIFENESIN/COD200MG-20MG/10ML LIQUID PO PRN (14:30)
[2018-04-03] MEDS ORDERED: DOCUSATE 100 MG CAPSULE PO PRN (14:30)
[2018-04-03] MEDS ORDERED: DEXTROSE 4 GM TAB.CHEW PO PRN (14:30)
[2018-04-03] MEDS ORDERED: ONDANSETRON 2MG/ML, 2ML IVPush PRN (14:30)
[2018-04-03] MEDS ORDERED: DEXTROSE 50%, 50ML SYRINGE IVPush PRN (14:30)
[2018-04-03] MEDS ORDERED: LORazepam 2 MG/ML, 1ML IVPush ONE (14:30)
[2018-04-03] MEDS: ALBUTEROL/IPRATROPIUM 2.5MG/0.5MG, 3 ML NPPB SCH ×2 (15:35→20:30)
[2018-04-03] MEDS ORDERED: ALBUTEROL SULFATE 2.5 MG/3 ML NPPB PRN (16:00)
[2018-04-03] MEDS: INSULIN LISPRO 100 UNITS/ML, PEN SQ-INSULIN SCH ×2 (16:00→20:29)
[2018-04-03] MEDS ORDERED: TEMPLATE NON-FORMULARY MED. (Albuterol Sulfate (Ventolin Hfa) 2 PUFFS) INH SCH (16:00)
[2018-04-03] MEDS ORDERED: NORCO MC SCH (16:30)
[2018-04-03] MEDS: HEPARIN 5,000 UNITS/ML, 1ML SQ SCH (18:36)
[2018-04-03] MEDS: CEFTRIAXONE PMX 1GM/50ML 50 ML IV SCH (18:36)
[2018-04-03] MEDS: HYDROcodone/APAP 5/325 TABLET PO PRN (18:37)
[2018-04-03 19:03] VITALS: BP 147/91
[2018-04-03] MEDS: LORazepam 0.5MG TABLET PO PRN (19:36)
[2018-04-03] MEDS: ATORVASTATIN 10 MG TABLET PO SCH (20:28)
[2018-04-03] MEDS: AZITHROMYCIN 500 MG in SODIUM CHLORIDE 0.9% 250 ML IV SCH (20:48)
[2018-04-03] MEDS ORDERED: SODIUM CHLORIDE FLUSH 10ML SYR IVF SCH (21:00)
[2018-04-03] MEDS ORDERED: TEMPLATE NON-FORMULARY MED. (Budesonide/Formoterol Fumarate (Symbicort 160-4.5 Mcg Inhaler INH SCH (21:00)
[2018-04-03] MEDS: SODIUM CHLORIDE FLUSH 10ML SYR IVF SCH (21:00)
[2018-04-04 01:05] VITALS: BP 134/66
[2018-04-04] MEDS: HEPARIN 5,000 UNITS/ML, 1ML SQ SCH ×3 (02:26→19:49)
[2018-04-04] MEDS: HYDROcodone/APAP 5/325 TABLET PO PRN ×3 (04:14→18:44)
[2018-04-04] MEDS: LORazepam 0.5MG TABLET PO PRN ×4 (04:14→22:37)
[2018-04-04] MEDS: ALBUTEROL/IPRATROPIUM 2.5MG/0.5MG, 3 ML NPPB SCH ×6 (04:45→22:00)
[2018-04-04] MEDS: methylPREDNISolone SOD SUCC 40 MG/ML IVPush SCH ×3 (05:53→22:23)
[2018-04-04 06:48] VITALS: BP 143/78
[2018-04-04] MEDS: INSULIN LISPRO 100 UNITS/ML, PEN SQ-INSULIN SCH ×4 (08:15→20:04)
[2018-04-04] MEDS: SODIUM CHLORIDE FLUSH 10ML SYR IVF SCH ×2 (08:15→19:49)
[2018-04-04] MEDS: SENNA/DOCUSATE TABLET PO SCH (08:16)
[2018-04-04] MEDS: SERTRALINE 100MG TABLET PO SCH (08:16)
[2018-04-04] MEDS: POTASSIUM CHLORIDE 20 MEQ TAB.ER.PRT PO SCH (08:16)
[2018-04-04] MEDS: FLUTICASONE/VILANTEROL 200-25MCG/INH INH SCH (09:53)
[2018-04-04 12:19] VITALS: BP 141/62
[2018-04-04] MEDS: BESIFLOXACIN 0.6% LEFTEYE SCH ×2 (17:24→19:49)
[2018-04-04] MEDS: CEFTRIAXONE PMX 1GM/50ML 50 ML IV SCH (18:44)
[2018-04-04 19:18] VITALS: BP 130/66
[2018-04-04] MEDS: ATORVASTATIN 10 MG TABLET PO SCH (19:49)
[2018-04-04] MEDS: AZITHROMYCIN 500 MG in SODIUM CHLORIDE 0.9% 250 ML IV SCH (19:49)
[2018-04-04] MEDS: KETOROLAC TROMETHAMINE OP SCH (19:50)
[2018-04-04] MEDS ORDERED: KETOROLAC TROMETHAMINE OP SCH (21:00)
[2018-04-05 01:39] VITALS: BP 142/76
[2018-04-05] MEDS: ALBUTEROL/IPRATROPIUM 2.5MG/0.5MG, 3 ML NPPB SCH ×3 (01:42→10:00)
[2018-04-05] MEDS: HEPARIN 5,000 UNITS/ML, 1ML SQ SCH ×2 (04:00→12:00)
[2018-04-05] MEDS: HYDROcodone/APAP 5/325 TABLET PO PRN (05:27)
[2018-04-05] MEDS: methylPREDNISolone SOD SUCC 40 MG/ML IVPush SCH (05:27)
[2018-04-05 07:30] VITALS: BP 145/78
[2018-04-05] MEDS: SERTRALINE 100MG TABLET PO SCH (08:16)
[2018-04-05] MEDS: SENNA/DOCUSATE TABLET PO SCH (08:16)
[2018-04-05] MEDS: POTASSIUM CHLORIDE 20 MEQ TAB.ER.PRT PO SCH (08:16)
[2018-04-05] MEDS: LORazepam 0.5MG TABLET PO PRN (08:16)
[2018-04-05] MEDS: FLUTICASONE/VILANTEROL 200-25MCG/INH INH SCH (08:16)
[2018-04-05] MEDS: INSULIN LISPRO 100 UNITS/ML, PEN SQ-INSULIN SCH ×2 (08:17→11:00)
[2018-04-05] MEDS: KETOROLAC TROMETHAMINE OP SCH (08:19)
[2018-04-05] MEDS: SODIUM CHLORIDE FLUSH 10ML SYR IVF SCH (08:19)
[2018-04-05] MEDS: BESIFLOXACIN 0.6% LEFTEYE SCH (08:19)
[2018-04-05] MEDS ORDERED: LOTEPREDNOL ETABONATE 0.5% OP SCH (09:00)
[2018-04-05] MEDS ORDERED: AZIT500T5 PO (11:14)
[2018-04-05] MEDS ORDERED: CEFD300C37 PO (11:14)
[2018-04-05] MEDS ORDERED: PRED5TAB PO (11:14)
[2018-04-05 12:14] VITALS: BP 122/81
== END 2018-04-05 13:48 | disposition home or self-care (01) | DRG 189 ==
LOC: ED 14:02 → EDIP 14:03 → 3NE 15:49
PROVIDERS: ADMIT Internal Medicine; ATTEND Internal Medicine
DX: J96.20 Acute and chronic respiratory failure, unspecified whether with hypoxia or hypercapnia (principal); J44.1 Chronic obstructive pulmonary disease with (acute) exacerbation; Z68.44 Body mass index [BMI] 60.0-69.9, adult; I50.32 Chronic diastolic (congestive) heart failure; F17.210 Nicotine dependence, cigarettes, uncomplicated; F32.9 Major depressive disorder, single episode, unspecified; E66.01 Morbid (severe) obesity due to excess calories; E11.9 Type 2 diabetes mellitus without complications; Z99.81 Dependence on supplemental oxygen; E78.5 Hyperlipidemia, unspecified; G47.30 Sleep apnea, unspecified; Z80.1 Family history of malignant neoplasm of trachea, bronchus and lung; Z82.49 Family history of ischemic heart disease and other diseases of the circulatory system; Z90.710 Acquired absence of both cervix and uterus
CPT/HCPCS: 36415; 71045; 80053; 82962; 83880; 84484; 85025; 93005; 94640; 96374; 99285; G0378; J0456; J0696; J1644; J7620; J1815; J2060; J2920; J7050; J7512

== ENCOUNTER 2018-04-15 10:12 | Inpatient (IN) | payer MEDICARE ==
[~2018-04-15] VITALS: Ht 167.6 cm; Wt 157.9 kg
[~2018-04-15 10:12] MED LIST changes: +HYDR-3240 PO
[2018-04-15] MEDS ORDERED: methylPREDNISolone SOD SUCC 125 MG/2 ML ONE (10:39)
[2018-04-15 10:59] LABS: BASOPHILS # (AUTO) 0.03 x10^3/uL (0-0.1); BASOPHILS % (AUTO) 0 % (0-1); EOSINOPHILS # (AUTO) 0.02 x10^3/uL (0-0.4); EOSINOPHILS % (AUTO) 0 % (1-7); LYMPHOCYTES % (AUTO) 9 % (22-44); MD NO; MEAN CORPUSCULAR HEMOGLOBIN 30.5 pg (27.0-34.8); MEAN CORPUSCULAR HGB CONC 32.3 g/dL (32.4-35.8); MEAN CORPUSCULAR VOLUME 94.3 fL (80-100); MEAN PLATELET VOLUME 8.4 fL (7.4-10.4); MONOCYTES # (AUTO) 0.54 x10^3/uL (0.2-0.8); MONOCYTES % (AUTO) 4 % (2-9); NEUTROPHILS # (AUTO) 10.69 x10^3/uL (1.8-6.8); NEUTROPHILS % (AUTO) 86 % (42-75); PLATELET COUNT 216 x10^3/uL (130-400); RED BLOOD COUNT 4.66 x10^6/uL (3.82-5.3); RED CELL DISTRIBUTION WIDTH 14.9 % (9.6-15.2)
[2018-04-15] MEDS ORDERED: DOXYCYCLINE 100 MG in DEXTROSE 5% 250 ML IV ONE (11:00)
[2018-04-15] MEDS ORDERED: methylPREDNISolone SOD SUCC 125 MG/2 ML IVP ONE (11:00)
[2018-04-15] MEDS ORDERED: SODIUM CHLORIDE FLUSH 10ML SYR IVF ONE (11:00)
[2018-04-15 11:12] LABS: ALBUMIN 3.3 g/dL (3.4-5.0); ANION GAP 5 mmol/L (5-15); CALCIUM 8.4 mg/dL (8.5-10.1); CHLORIDE 102 mmol/L (98-107)
[2018-04-15 11:17] LABS: ALANINE AMINOTRANSFERASE 64 U/L (12-78); ALKALINE PHOSPHATASE 109 U/L (45-117); BILIRUBIN,TOTAL 0.3 mg/dL (0.2-1.0); CREATININE 0.81 mg/dL (0.55-1.02); TOTAL PROTEIN 6.7 g/dL (6.4-8.2); TROPONIN I 0.018 ng/mL (0.000-0.045)
[2018-04-15] MEDS ORDERED: TIOT18CA INH (12:21)
[2018-04-15] MEDS ORDERED: FUROSEMIDE 20 MG/2 ML IV ONE (12:30)
[2018-04-15] MEDS ORDERED: FUROSEMIDE 20 MG/2 ML ONE (12:44)
[2018-04-15] MEDS ORDERED: ONDANSETRON 2MG/ML, 2ML IVPush PRN (13:00)
[2018-04-15] MEDS ORDERED: morphine SULFATE 10 MG/ML, 1ML IVPush PRN (13:00)
[2018-04-15] MEDS ORDERED: ACETAMINOPHEN 325 MG TABLET PO PRN (13:00)
[2018-04-15] MEDS ORDERED: ENALAPRILAT 1.25 MG/ML, 2ML IVPush PRN (13:00)
[2018-04-15] MEDS: PIPERACILLIN/TAZO/PMX 3.375GM 50 ML IV SCH ×2 (14:18→20:17)
[2018-04-15] MEDS: ENOXAPARIN 40 MG/0.4 ML SQ SCH (14:18)
[2018-04-15] MEDS: ALBUTEROL/IPRATROPIUM 2.5MG/0.5MG, 3 ML NPPB SCH ×2 (14:46→18:38)
[2018-04-15] MEDS: INSULIN LISPRO 100 UNITS/ML, PEN SQ-INSULIN SCH ×2 (15:37→20:37)
[2018-04-15] MEDS: LINEZOLID PMX 600MG/300ML 300 ML IV SCH (15:37)
[2018-04-15 16:31] VITALS: BP 130/81
[2018-04-15] MEDS: POTASSIUM CHLORIDE 20 MEQ TAB.ER.PRT PO SCH (17:00)
[2018-04-15] MEDS: methylPREDNISolone SOD SUCC 125 MG/2 ML IVPush SCH ×2 (17:26→23:34)
[2018-04-15] MEDS: HYDROcodone/APAP 5/325 TABLET PO PRN (17:27)
[2018-04-15] MEDS: FUROSEMIDE 40 MG/4 ML IV SCH (17:27)
[2018-04-15 18:29] LABS: CLOSTRIDIUM DIFFICILE ANTIGEN NEGATIVE; CLOSTRIDIUM DIFFICILE TOXIN NEGATIVE (Negative)
[2018-04-15 20:13] VITALS: BP 151/83
[2018-04-15] MEDS: ATORVASTATIN 10 MG TABLET PO SCH (20:30)
[2018-04-15 23:06] LABS: TROPONIN I < 0.015 ng/mL (0.000-0.045)
[2018-04-16 00:19] VITALS: BP 162/82
[2018-04-16] MEDS: PIPERACILLIN/TAZO/PMX 3.375GM 50 ML IV SCH ×4 (01:03→20:22)
[2018-04-16] MEDS: LINEZOLID PMX 600MG/300ML 300 ML IV SCH ×2 (01:35→14:08)
[2018-04-16] MEDS: HYDROcodone/APAP 5/325 TABLET PO PRN ×3 (01:48→16:35)
[2018-04-16] MEDS: ALBUTEROL/IPRATROPIUM 2.5MG/0.5MG, 3 ML NPPB SCH ×4 (02:09→20:21)
[2018-04-16 04:51] LABS: ALBUMIN 3.4 g/dL (3.4-5.0); ANION GAP 5 mmol/L (5-15); CALCIUM 8.8 mg/dL (8.5-10.1); CHLORIDE 97 mmol/L (98-107)
[2018-04-16 04:57] LABS: ALANINE AMINOTRANSFERASE 57 U/L (12-78); ALKALINE PHOSPHATASE 108 U/L (45-117); BILIRUBIN,TOTAL 0.3 mg/dL (0.2-1.0); CREATININE 0.97 mg/dL (0.55-1.02); TOTAL PROTEIN 7.1 g/dL (6.4-8.2); TROPONIN I < 0.015 ng/mL (0.000-0.045)
[2018-04-16] MEDS: methylPREDNISolone SOD SUCC 125 MG/2 ML IVPush SCH ×5 (05:26→22:19)
[2018-04-16 08:04] VITALS: BP 142/81
[2018-04-16] MEDS: FUROSEMIDE 40 MG/4 ML IV SCH ×2 (08:28→16:29)
[2018-04-16] MEDS: SERTRALINE 100MG TABLET PO SCH (08:28)
[2018-04-16] MEDS: POTASSIUM CHLORIDE 20 MEQ TAB.ER.PRT PO SCH ×2 (08:28→16:29)
[2018-04-16] MEDS: INSULIN LISPRO 100 UNITS/ML, PEN SQ-INSULIN SCH ×4 (08:29→20:22)
[2018-04-16] MEDS ORDERED: INSULIN GLARGINE 100 UNITS/ML, PEN SQ-INSULIN SCH ×2 (11:00→13:00)
[2018-04-16] MEDS: ENOXAPARIN 40 MG/0.4 ML SQ SCH (13:26)
[2018-04-16 14:00] VITALS: BP 136/81
[2018-04-16] MEDS ORDERED: INSULIN LISPRO 100 UNITS/ML, PEN SQ-INSULIN ONE (17:00)
[2018-04-16] MEDS: INSULIN GLARGINE 100 UNITS/ML, PEN SQ-INSULIN SCH ×2 (17:57→22:19)
[2018-04-16 19:57] VITALS: BP 136/71
[2018-04-16] MEDS: ATORVASTATIN 10 MG TABLET PO SCH (20:22)
[2018-04-16] MEDS: TEMAZEPAM 15 MG CAPSULE PO PRN (22:12)
[2018-04-17] MEDS: LINEZOLID PMX 600MG/300ML 300 ML IV SCH ×2 (00:36→12:52)
[2018-04-17 00:56] VITALS: BP 141/81
[2018-04-17] MEDS: ALBUTEROL/IPRATROPIUM 2.5MG/0.5MG, 3 ML NPPB SCH ×4 (03:00→19:54)
[2018-04-17] MEDS: PIPERACILLIN/TAZO/PMX 3.375GM 50 ML IV SCH ×4 (03:52→20:48)
[2018-04-17] MEDS: methylPREDNISolone SOD SUCC 125 MG/2 ML IVPush SCH ×3 (04:04→17:57)
[2018-04-17 05:40] LABS: ANION GAP 3 mmol/L (5-15); CALCIUM 9.1 mg/dL (8.5-10.1); CHLORIDE 99 mmol/L (98-107); CREATININE 0.85 mg/dL (0.55-1.02)
[2018-04-17] MEDS: POTASSIUM CHLORIDE 20 MEQ TAB.ER.PRT PO SCH ×2 (08:02→16:40)
[2018-04-17] MEDS: FUROSEMIDE 40 MG/4 ML IV SCH ×2 (08:02→16:40)
[2018-04-17] MEDS: HYDROcodone/APAP 5/325 TABLET PO PRN ×2 (08:02→16:27)
[2018-04-17] MEDS: INSULIN LISPRO 100 UNITS/ML, PEN SQ-INSULIN SCH ×4 (08:06→20:49)
[2018-04-17 08:08] VITALS: BP 124/75
[2018-04-17] MEDS: INSULIN GLARGINE 100 UNITS/ML, PEN SQ-INSULIN SCH ×2 (08:53→20:49)
[2018-04-17] MEDS: SERTRALINE 100MG TABLET PO SCH (08:54)
[2018-04-17] MEDS: ENOXAPARIN 40 MG/0.4 ML SQ SCH (12:52)
[2018-04-17 13:21] VITALS: BP 122/70
[2018-04-17 19:06] VITALS: BP 145/68
[2018-04-17] MEDS: TEMAZEPAM 15 MG CAPSULE PO PRN (20:48)
[2018-04-17] MEDS: ATORVASTATIN 10 MG TABLET PO SCH (20:50)
[2018-04-18] MEDS: methylPREDNISolone SOD SUCC 125 MG/2 ML IVPush SCH ×5 (00:26→23:34)
[2018-04-18] MEDS: LINEZOLID PMX 600MG/300ML 300 ML IV SCH (00:26)
[2018-04-18 02:01] VITALS: BP 139/68
[2018-04-18] MEDS: ALBUTEROL/IPRATROPIUM 2.5MG/0.5MG, 3 ML NPPB SCH ×4 (03:04→20:31)
[2018-04-18] MEDS: PIPERACILLIN/TAZO/PMX 3.375GM 50 ML IV SCH (03:38)
[2018-04-18] MEDS: FUROSEMIDE 40 MG/4 ML IV SCH ×2 (07:30→16:49)
[2018-04-18] MEDS: POTASSIUM CHLORIDE 20 MEQ TAB.ER.PRT PO SCH ×2 (07:31→16:50)
[2018-04-18 07:32] VITALS: BP 139/80
[2018-04-18] MEDS: INSULIN LISPRO 100 UNITS/ML, PEN SQ-INSULIN SCH ×4 (07:35→21:19)
[2018-04-18] MEDS: LACTOBACILLUS 1GM/ PACKET PO SCH ×3 (08:57→21:00)
[2018-04-18] MEDS: HYDROcodone/APAP 5/325 TABLET PO PRN ×2 (08:58→16:24)
[2018-04-18] MEDS: LEVOFLOXACIN/PMX 750MG/150ML 150 ML IV SCH (08:58)
[2018-04-18] MEDS: SERTRALINE 100MG TABLET PO SCH (08:58)
[2018-04-18] MEDS: INSULIN GLARGINE 100 UNITS/ML, PEN SQ-INSULIN SCH ×2 (08:59→21:18)
[2018-04-18] MEDS: ENOXAPARIN 40 MG/0.4 ML SQ SCH (12:13)
[2018-04-18 13:05] VITALS: BP 139/72
[2018-04-18] MEDS: TEMAZEPAM 15 MG CAPSULE PO PRN (21:17)
[2018-04-18] MEDS: ATORVASTATIN 10 MG TABLET PO SCH (21:17)
[2018-04-18 21:22] VITALS: BP 142/82
[2018-04-19 01:26] VITALS: BP 147/86
[2018-04-19] MEDS: ALBUTEROL/IPRATROPIUM 2.5MG/0.5MG, 3 ML NPPB SCH ×3 (03:00→14:42)
[2018-04-19] MEDS: methylPREDNISolone SOD SUCC 125 MG/2 ML IVPush SCH ×2 (05:19→11:45)
[2018-04-19 06:20] LABS: CALCIUM 8.9 mg/dL (8.5-10.1); CHLORIDE 99 mmol/L (98-107); CREATININE 0.75 mg/dL (0.55-1.02)
[2018-04-19 06:29] LABS: ANION GAP 4 mmol/L (5-15)
[2018-04-19 07:37] VITALS: BP 145/72
[2018-04-19] MEDS: HYDROcodone/APAP 5/325 TABLET PO PRN (07:59)
[2018-04-19] MEDS: FUROSEMIDE 40 MG/4 ML IV SCH (07:59)
[2018-04-19] MEDS: SERTRALINE 100MG TABLET PO SCH (07:59)
[2018-04-19] MEDS: LACTOBACILLUS 1GM/ PACKET PO SCH (07:59)
[2018-04-19] MEDS: POTASSIUM CHLORIDE 20 MEQ TAB.ER.PRT PO SCH (07:59)
[2018-04-19] MEDS: INSULIN LISPRO 100 UNITS/ML, PEN SQ-INSULIN SCH ×2 (08:08→11:53)
[2018-04-19] MEDS: INSULIN GLARGINE 100 UNITS/ML, PEN SQ-INSULIN SCH (08:08)
[2018-04-19] MEDS: LEVOFLOXACIN/PMX 750MG/150ML 150 ML IV SCH (08:18)
[2018-04-19] MEDS ORDERED: POTASSIUM CHLORIDE 20 MEQ TAB.ER.PRT PO SCH (09:00)
[2018-04-19] MEDS: ENOXAPARIN 40 MG/0.4 ML SQ SCH (13:40)
[2018-04-19 14:33] VITALS: BP 120/80
[2018-04-19] MEDS ORDERED: HYDR-3240 PO (14:59)
[2018-04-19] MEDS ORDERED: ACET325T14 PO (14:59)
[2018-04-19] MEDS ORDERED: ATOR10TA9 PO (14:59)
[2018-04-19] MEDS ORDERED: ACID1GRA3 PO (14:59)
[2018-04-19] MEDS ORDERED: SERT100T5 PO (14:59)
[2018-04-19] MEDS ORDERED: POTA20TA6 PO (14:59)
[2018-04-19] MEDS ORDERED: ONDA4VIA8 IVPush (14:59)
[2018-04-19] MEDS ORDERED: INSU100I11 SQ-INSULIN (14:59)
[2018-04-19] MEDS ORDERED: MORP10VI10 IVPush (14:59)
[2018-04-19] MEDS ORDERED: METH125V16 IVPush (14:59)
[2018-04-19] MEDS ORDERED: FURO10VI37 IV (14:59)
[2018-04-19] MEDS ORDERED: ENAL1.2513 IVPush (14:59)
[2018-04-19] MEDS ORDERED: INSU100I13 SQ-INSULIN (14:59)
[2018-04-19] MEDS ORDERED: IPRA3AMP30 NPPB (14:59)
[2018-04-19] MEDS ORDERED: TEMA15CA6 PO (14:59)
[2018-04-19] MEDS ORDERED: TRAM50TA2 PO (14:59)
[2018-04-19] MEDS ORDERED: ENOX40SY4 SQ (14:59)
[2018-04-19] MEDS ORDERED: LEVO750T26 PO (14:59)
[2018-04-20] MEDS ORDERED: POTASSIUM CHLORIDE 20 MEQ TAB.ER.PRT PO SCH (09:00)
== END 2018-04-19 17:32 | DRG 871 ==
LOC: ED 11:03 → EDIP 12:11 → 5SO 13:01
PROVIDERS: ADMIT Internal Medicine; ATTEND Internal Medicine
DX: A41.9 Sepsis, unspecified organism (principal); I50.33 Acute on chronic diastolic (congestive) heart failure; J96.21 Acute and chronic respiratory failure with hypoxia; J15.0 Pneumonia due to Klebsiella pneumoniae; J44.1 Chronic obstructive pulmonary disease with (acute) exacerbation; J44.0 Chronic obstructive pulmonary disease with (acute) lower respiratory infection; Z68.43 Body mass index [BMI] 50.0-59.9, adult; E11.9 Type 2 diabetes mellitus without complications; I45.10 Unspecified right bundle-branch block; E78.5 Hyperlipidemia, unspecified; E66.01 Morbid (severe) obesity due to excess calories; Z87.891 Personal history of nicotine dependence; Z90.710 Acquired absence of both cervix and uterus; Z99.81 Dependence on supplemental oxygen; Z79.899 Other long term (current) drug therapy
CPT/HCPCS: 36415; 71045; 80048; 80053; 82962; 83036; 83735; 83880; 84100; 84443; 84484; 85025; 87040; 87070; 87077; 87186; 87205; 87324; 93005; 94640; 96374; 96375; C8929; G0378; J1650; J1940; J1956; J2020; J2543; J7060; J7620; Q9957; J1815; J2930

== ENCOUNTER 2018-07-12 15:30 | Emergency (ER) | payer MEDICARE ==
[~2018-07-12] VITALS: Ht 167.6 cm; Wt 165.0 kg
[~2018-07-12 15:30] MED LIST changes: +ACET325T14 PO; +ACID1GRA3 PO; +AMLO-150 PO; -AMLO5TAB7 PO; +ATOR10TA9 PO; +BUDE10.2 IH; +DOXY100T PO; +ENAL1.2513 IVPush; +ENOX40SY4 SQ; +FURO10VI37 IV; +GLIP5TAB10 PO; +INSU100I11 SQ-INSULIN; +INSU100I13 SQ-INSULIN; +IPRA3AMP30 NPPB; +LEVO750T26 PO; +METF-688 PO; +METH125V16 IVPush; +MORP10VI10 IVPush; +ONDA4VIA8 IVPush; +PRED10TA PO; +SERT100T5 PO; +TEMA15CA6 PO; +TIOT18CA INH; +TRAM50TA2 PO
[2018-07-12 15:49] VITALS: BP 146/82
--- NOTE | 2018-07-12 16:00 | NUR ---
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
--- NOTE | 2018-07-12 16:09 | NUR ---
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
[2018-07-12] MEDS ORDERED: KETOROLAC 30 MG/1 ML IM ONE ×2 (16:30→17:00)
[2018-07-12] MEDS ORDERED: KETOROLAC 30 MG/1 ML ONE (16:36)
== END 2018-07-12 16:59 | disposition home or self-care (01) ==
LOC: ED 16:45
DX: S46.112A Strain of muscle, fascia and tendon of long head of biceps, left arm, initial encounter (principal); E11.9 Type 2 diabetes mellitus without complications; J44.9 Chronic obstructive pulmonary disease, unspecified; F17.200 Nicotine dependence, unspecified, uncomplicated; W19.XXXA Unspecified fall, initial encounter; Y93.89 Activity, other specified; Y92.89 Other specified places as the place of occurrence of the external cause; Y99.8 Other external cause status
CPT/HCPCS: 73060; 96372; 99283; J1885

== ENCOUNTER 2019-02-26 10:00 | Inpatient (IN) | payer MEDICARE ==
[~2019-02-26] VITALS: Ht 167.6 cm; Wt 175.3 kg
[2019-02-28 13:12] VITALS: BP 136/109
== END 2019-02-28 13:37 | disposition home or self-care (01) | DRG 193 ==
LOC: ED 12:31 → INTOOBSV 12:48 → EDIP 12:48 → OBSVTOIN 13:50 → 3NE 13:55
PROVIDERS: ADMIT Family Medicine; ATTEND Family Medicine
DX: J18.9 Pneumonia, unspecified organism (principal); J96.21 Acute and chronic respiratory failure with hypoxia; J44.1 Chronic obstructive pulmonary disease with (acute) exacerbation; I50.32 Chronic diastolic (congestive) heart failure; Z68.44 Body mass index [BMI] 60.0-69.9, adult; J44.0 Chronic obstructive pulmonary disease with (acute) lower respiratory infection; E11.9 Type 2 diabetes mellitus without complications; E66.01 Morbid (severe) obesity due to excess calories; F41.9 Anxiety disorder, unspecified; G47.30 Sleep apnea, unspecified; J01.90 Acute sinusitis, unspecified; Z82.49 Family history of ischemic heart disease and other diseases of the circulatory system; Z80.1 Family history of malignant neoplasm of trachea, bronchus and lung; Z86.14 Personal history of Methicillin resistant Staphylococcus aureus infection; Z87.891 Personal history of nicotine dependence; Z99.81 Dependence on supplemental oxygen
CPT/HCPCS: 36415; 71045; 80048; 82040; 83605; 83880; 84145; 85025; 85379; 87040; 93005; 94640; 99285; G0378; J0456; J0696; J1644; J7611; J7620; J7626; J7050; J7512

== ENCOUNTER 2019-06-11 14:20 | Inpatient (IN) | payer MEDICARE ==
[~2019-06-11] VITALS: Ht 167.6 cm; Wt 134.7 kg
[~2019-06-11 14:20] MED LIST changes: +AMOX500T PO; +ATOR20TA37 PO; +AZIT250T89 PO; +AZIT500T10 PO; -AZIT500T5 PO; +CETI10TA18 PO; +FAMO20TA7 PO; +FLUT1BLS3 INH; +FURO80TA3 PO; +HYDR-3653 PO; +MELO7.5T31 PO; +ONDA4VIA60 IVPush; -ONDA4VIA8 IVPush; +PRED50TA PO; +SENN-177 PO; +SERT100T32 PO; -SERT100T5 PO; +vento; +ventolin
[2019-06-11] MEDS ORDERED: ALBUTEROL/IPRATROPIUM 2.5MG/0.5MG, 3 ML ONE (14:47)
[2019-06-11] MEDS ORDERED: ALBUTEROL/IPRATROPIUM 2.5MG/0.5MG, 3 ML NEB ONE (15:00)
--- NOTE | 2019-06-11 15:05 | NUR ---
ROSIBEL CHILEL FROM HOME FOR ACUTE ON CHRONIC SOB. PT REPORTS "NOT FEELING WELL" X1 YEAR, INCREASED OVER LAST 24 HRS. PT ALWAYS ON 4L NC, AFTER AMBULATING TODAY AND BACK ON 4L FOUND O2 SATS IN MID 80'S. PT ON 5L NC AT 97% CURRENTLY IN ED [facility]. PT TALKS IN 5-7 WORD SENTENCES, INCREASED EXPIRATORY WOB. PT REPORTS INTERMITTENT NAUSEA, GIVEN ALCOHOL WIPE. SON AT BEDSIDE CURRENTLY AND UPDATED ON CURRENT POC. PT WATCHING TELEVISION, SIDE RAILS UP, CALL LIGHT IN REACH. AWAITING CXR RESULT, LAB. BREATHING TX COMPLETED.
[2019-06-11 15:13] LABS: BASOPHILS # (AUTO) 0.02 x10^3/uL (0-0.1); BASOPHILS % (AUTO) 0 % (0-1); EOSINOPHILS # (AUTO) 0.19 x10^3/uL (0-0.4); EOSINOPHILS % (AUTO) 2 % (1-7); LYMPHOCYTES # (AUTO) 1.31 x10^3/uL (1-3.4); LYMPHOCYTES % (AUTO) 11 % (22-44); MD NO; MEAN CORPUSCULAR HEMOGLOBIN 29.7 pg (27.0-34.8); MEAN CORPUSCULAR HGB CONC 31.6 g/dL (32.4-35.8); MEAN PLATELET VOLUME 8.3 fL (7.4-10.4); MONOCYTES # (AUTO) 0.55 x10^3/uL (0.2-0.8); MONOCYTES % (AUTO) 5 % (2-9); NEUTROPHILS # (AUTO) 10.32 x10^3/uL (1.8-6.8); NEUTROPHILS % (AUTO) 83 % (42-75); PLATELET COUNT 307 x10^3/uL (130-400); RED BLOOD COUNT 4.34 x10^6/uL (3.82-5.3); RED CELL DISTRIBUTION WIDTH 13.9 % (9.6-15.2)
[2019-06-11 15:21] LABS: CHLORIDE 101 mmol/L (98-107)
[2019-06-11 15:22] LABS: ALBUMIN 3.5 g/dL (3.4-5.0); ANION GAP 4 mmol/L (5-15)
[2019-06-11 15:28] LABS: ALANINE AMINOTRANSFERASE 24 U/L (12-78); ALKALINE PHOSPHATASE 105 U/L (45-117); BILIRUBIN,TOTAL 0.4 mg/dL (0.2-1.0); CREATININE 0.71 mg/dL (0.55-1.02); TOTAL PROTEIN 6.8 g/dL (6.4-8.2); TROPONIN I < 0.015 ng/mL (0.000-0.045)
--- NOTE | 2019-06-11 15:42 | NUR ---
CHART UP FOR RECHECK.
[2019-06-11] MEDS ORDERED: SODIUM CHLORIDE FLUSH 10ML SYR IVF ONE (16:00)
[2019-06-11] MEDS ORDERED: ALBUTEROL SULFATE 2.5 MG/3 ML NPPB ONE (16:00)
[2019-06-11] MEDS ORDERED: methylPREDNISolone SOD SUCC 125 MG/2 ML IVPush SCH (16:00)
[2019-06-11] MEDS ORDERED: ALBUTEROL SULFATE 2.5 MG/3 ML ONE (16:04)
[2019-06-11] MEDS ORDERED: methylPREDNISolone SOD SUCC 125 MG/2 ML ONE (16:18)
--- NOTE | 2019-06-11 16:23 | NUR ---
PT MEDICATED PER EMAR, SECOND BREATHING TX COMPLETED, WOB DECREASED. TALKS AND IS PLEASANT WITH RN. SIDE RAILS UP, CALL LIGHT IN REACH. PT WATCHING TELEVISION. REPORTS ONLY PAIN IN ARMS AND LEGS, WHICH IS ALWAYS PRESENT FROM RA.
[2019-06-11] MEDS ORDERED: SERT100T PO (16:48)
--- NOTE | 2019-06-11 17:24 | NUR ---
REPORT TO CHESTER AARON
--- NOTE | 2019-06-11 17:24 | NUR ---
BREAK RN: PT UPRIGHT ON GURNEY AWAKE & COMFORTABLE, RESPONDS APPROP TO STAFF, NAD WITH SUPPL O2 IN PLACE, COMFORT MEASURES PROVIDED, CALL LIGHT WITHIN REACH.
[2019-06-11] MEDS ORDERED: ENALAPRILAT 1.25 MG/ML, 2ML IVPush PRN (17:30)
[2019-06-11] MEDS ORDERED: LABETALOL 5MG/ML, 20ML IVPush PRN (17:30)
[2019-06-11 17:56] LABS: TROPONIN I < 0.015 ng/mL (0.000-0.045)
[2019-06-11] MEDS ORDERED: HEPARIN 5,000 UNITS/ML, 1ML ONE (18:10)
--- NOTE | 2019-06-11 18:14 | NUR ---
PT SITTING UP IN BED WATCHING TELEVISION. NAD NOTED AT THIS TIME. PT GIVEN UNSALTED CRACKERS, AWAITING DINNER TRAY. SIDE RAILS UP, CALL LIGHT IN REACH.
[2019-06-11] MEDS: HEPARIN 5,000 UNITS/ML, 1ML SQ SCH (18:27)
--- NOTE | 2019-06-11 18:37 | NUR ---
FIRST ATTEMPT TO CALL REPORT.
[2019-06-11] MEDS ORDERED: ALBUTEROL/IPRATROPIUM 2.5MG/0.5MG, 3 ML NPPB SCH (19:00)
--- NOTE | 2019-06-11 19:35 | NUR ---
FIRST ATTEMPT TO CALL REPORT TO NEW FLOOR. NAD NOTED IN PT. PT SITTING UP, WATCHING TELEVISION AWAITING ADMIT BED. SIDE RAILS UP, CALL LIGHT IN REACH.
[2019-06-11 20:02] VITALS: BP 157/65
[2019-06-11] MEDS ORDERED: SERTRALINE 100MG TABLET PO SCH (21:00)
[2019-06-11] MEDS: FUROSEMIDE 40 MG/4 ML IV SCH (21:03)
[2019-06-11] MEDS: metFORMIN 500 MG TABLET PO SCH (21:03)
[2019-06-11] MEDS: ATORVASTATIN 20 MG TABLET PO SCH (21:03)
[2019-06-11 23:40] LABS: TROPONIN I < 0.015 ng/mL (0.000-0.045)
[2019-06-12] MEDS: ALBUTEROL/IPRATROPIUM 2.5MG/0.5MG, 3 ML NPPB SCH ×4 (01:59→20:14)
[2019-06-12 02:07] VITALS: BP 129/59
[2019-06-12] MEDS: HEPARIN 5,000 UNITS/ML, 1ML SQ SCH ×3 (02:14→19:45)
[2019-06-12 05:42] LABS: BASOPHILS # (AUTO) 0.02 x10^3/uL (0-0.1); BASOPHILS % (AUTO) 0 % (0-1); EOSINOPHILS % (AUTO) 0 % (1-7); LYMPHOCYTES # (AUTO) 0.73 x10^3/uL (1-3.4); LYMPHOCYTES % (AUTO) 6 % (22-44); MD NO; MEAN CORPUSCULAR HEMOGLOBIN 29.7 pg (27.0-34.8); MEAN CORPUSCULAR HGB CONC 31.4 g/dL (32.4-35.8); MEAN CORPUSCULAR VOLUME 94.4 fL (80-100); MEAN PLATELET VOLUME 8.4 fL (7.4-10.4); MONOCYTES # (AUTO) 0.18 x10^3/uL (0.2-0.8); MONOCYTES % (AUTO) 1 % (2-9); NEUTROPHILS # (AUTO) 12.16 x10^3/uL (1.8-6.8); NEUTROPHILS % (AUTO) 93 % (42-75); PLATELET COUNT 297 x10^3/uL (130-400); RED BLOOD COUNT 4.46 x10^6/uL (3.82-5.3); RED CELL DISTRIBUTION WIDTH 13.7 % (9.6-15.2)
[2019-06-12 05:44] LABS: ANION GAP 6 mmol/L (5-15); CALCIUM 9.1 mg/dL (8.5-10.1); CHLORIDE 101 mmol/L (98-107)
[2019-06-12 05:57] LABS: CREATININE 0.88 mg/dL (0.55-1.02)
[2019-06-12 07:27] VITALS: BP 131/66
[2019-06-12] MEDS: FUROSEMIDE 40 MG/4 ML IV SCH ×2 (08:14→20:13)
[2019-06-12] MEDS: MELOXICAM 15 MG TABLET PO SCH (08:14)
[2019-06-12] MEDS: metFORMIN 500 MG TABLET PO SCH ×2 (08:14→16:38)
[2019-06-12] MEDS: POTASSIUM CHLORIDE 20 MEQ TAB.ER.PRT PO SCH (08:14)
[2019-06-12] MEDS: SERTRALINE 100MG TABLET PO SCH (08:15)
[2019-06-12 13:40] VITALS: BP 124/58
[2019-06-12] MEDS: ATORVASTATIN 20 MG TABLET PO SCH (20:13)
[2019-06-12] MEDS: ACETAMINOPHEN 325 MG TABLET PO PRN (21:15)
[2019-06-12 21:54] VITALS: BP 120/80
[2019-06-13] MEDS: ALBUTEROL/IPRATROPIUM 2.5MG/0.5MG, 3 ML NPPB SCH ×4 (02:15→20:13)
[2019-06-13] MEDS: HEPARIN 5,000 UNITS/ML, 1ML SQ SCH ×3 (02:31→20:58)
[2019-06-13 03:41] VITALS: BP 134/76
[2019-06-13 05:24] LABS: BASOPHILS # (AUTO) 0.06 x10^3/uL (0-0.1); BASOPHILS % (AUTO) 0 % (0-1); EOSINOPHILS # (AUTO) 0.02 x10^3/uL (0-0.4); EOSINOPHILS % (AUTO) 0 % (1-7); LYMPHOCYTES # (AUTO) 1.95 x10^3/uL (1-3.4); LYMPHOCYTES % (AUTO) 13 % (22-44); MD NO; MEAN CORPUSCULAR HEMOGLOBIN 29.9 pg (27.0-34.8); MEAN CORPUSCULAR HGB CONC 31.4 g/dL (32.4-35.8); MEAN PLATELET VOLUME 8.2 fL (7.4-10.4); MONOCYTES # (AUTO) 0.89 x10^3/uL (0.2-0.8); MONOCYTES % (AUTO) 6 % (2-9); NEUTROPHILS % (AUTO) 81 % (42-75); PLATELET COUNT 307 x10^3/uL (130-400); RED BLOOD COUNT 4.29 x10^6/uL (3.82-5.3); RED CELL DISTRIBUTION WIDTH 14.3 % (9.6-15.2)
[2019-06-13 05:26] LABS: ANION GAP 5 mmol/L (5-15); CALCIUM 8.9 mg/dL (8.5-10.1); CHLORIDE 101 mmol/L (98-107); CREATININE 0.66 mg/dL (0.55-1.02)
[2019-06-13 07:26] VITALS: BP 124/67
[2019-06-13] MEDS: metFORMIN 500 MG TABLET PO SCH ×2 (08:09→16:34)
[2019-06-13] MEDS: SERTRALINE 100MG TABLET PO SCH (08:10)
[2019-06-13] MEDS: POTASSIUM CHLORIDE 20 MEQ TAB.ER.PRT PO SCH (08:10)
[2019-06-13] MEDS: FUROSEMIDE 40 MG/4 ML IV SCH ×2 (08:12→20:58)
[2019-06-13] MEDS: MELOXICAM 15 MG TABLET PO SCH (08:18)
[2019-06-13] MEDS: ACETAMINOPHEN 325 MG TABLET PO PRN (12:16)
[2019-06-13 13:25] VITALS: BP 133/66
[2019-06-13] MEDS: BUDESONIDE 0.5 MG/2 ML INHA INH SCH (20:13)
[2019-06-13] MEDS: ATORVASTATIN 20 MG TABLET PO SCH (20:58)
[2019-06-13 21:58] VITALS: BP 118/61
[2019-06-14] MEDS: ALBUTEROL/IPRATROPIUM 2.5MG/0.5MG, 3 ML NPPB SCH ×2 (02:24→07:51)
[2019-06-14 03:55] VITALS: BP 120/80
[2019-06-14] MEDS: HEPARIN 5,000 UNITS/ML, 1ML SQ SCH ×2 (05:05→12:00)
[2019-06-14] MEDS: ACETAMINOPHEN 325 MG TABLET PO PRN (05:32)
[2019-06-14 06:50] LABS: BASOPHILS # (AUTO) 0.04 x10^3/uL (0-0.1); BASOPHILS % (AUTO) 0 % (0-1); EOSINOPHILS # (AUTO) 0.23 x10^3/uL (0-0.4); EOSINOPHILS % (AUTO) 2 % (1-7); LYMPHOCYTES # (AUTO) 2.55 x10^3/uL (1-3.4); LYMPHOCYTES % (AUTO) 17 % (22-44); MD NO; MEAN CORPUSCULAR HEMOGLOBIN 30.1 pg (27.0-34.8); MEAN CORPUSCULAR HGB CONC 31.1 g/dL (32.4-35.8); MEAN CORPUSCULAR VOLUME 96.6 fL (80-100); MEAN PLATELET VOLUME 8.1 fL (7.4-10.4); MONOCYTES % (AUTO) 6 % (2-9); NEUTROPHILS # (AUTO) 10.99 x10^3/uL (1.8-6.8); NEUTROPHILS % (AUTO) 75 % (42-75); PLATELET COUNT 312 x10^3/uL (130-400); RED BLOOD COUNT 4.19 x10^6/uL (3.82-5.3); RED CELL DISTRIBUTION WIDTH 14.1 % (9.6-15.2)
[2019-06-14 07:03] LABS: CALCIUM 8.6 mg/dL (8.5-10.1); CHLORIDE 102 mmol/L (98-107)
[2019-06-14 07:33] LABS: ANION GAP 5 mmol/L (5-15); CREATININE 0.67 mg/dL (0.55-1.02)
[2019-06-14 07:45] VITALS: BP 121/65
[2019-06-14] MEDS: BUDESONIDE 0.5 MG/2 ML INHA INH SCH (07:51)
[2019-06-14] MEDS: MELOXICAM 15 MG TABLET PO SCH (09:13)
[2019-06-14] MEDS: POTASSIUM CHLORIDE 20 MEQ TAB.ER.PRT PO SCH (09:13)
[2019-06-14] MEDS: SERTRALINE 100MG TABLET PO SCH (09:13)
[2019-06-14] MEDS: metFORMIN 500 MG TABLET PO SCH (09:13)
[2019-06-14] MEDS: FUROSEMIDE 40 MG/4 ML IV SCH (09:14)
[2019-06-14 10:16] LABS: MICROSCOPIC NOT IND
[2019-06-14] MEDS ORDERED: PRED20TA PO (10:36)
[2019-06-14] MEDS ORDERED: FUROSEMIDE 40 MG TABLET PO SCH (17:00)
== END 2019-06-14 14:13 | disposition home or self-care (01) | DRG 189 ==
LOC: ED 16:14 → EDIP 16:33 → 4WST 20:04 → UNDODISIN 06-14 11:06
PROVIDERS: ADMIT Family Medicine; ATTEND Family Medicine
DX: J96.21 Acute and chronic respiratory failure with hypoxia (principal); J44.1 Chronic obstructive pulmonary disease with (acute) exacerbation; Z68.42 Body mass index [BMI] 45.0-49.9, adult; I50.9 Heart failure, unspecified; E11.9 Type 2 diabetes mellitus without complications; E11.21 Type 2 diabetes mellitus with diabetic nephropathy; E66.01 Morbid (severe) obesity due to excess calories; G47.33 Obstructive sleep apnea (adult) (pediatric); D72.829 Elevated white blood cell count, unspecified; G89.29 Other chronic pain; Z90.710 Acquired absence of both cervix and uterus; Z87.891 Personal history of nicotine dependence; Z90.89 Acquired absence of other organs; Z86.14 Personal history of Methicillin resistant Staphylococcus aureus infection; Z79.84 Long term (current) use of oral hypoglycemic drugs; Z82.49 Family history of ischemic heart disease and other diseases of the circulatory system; Z99.81 Dependence on supplemental oxygen; Z79.899 Other long term (current) drug therapy
CPT/HCPCS: 36415; 71045; 80048; 80053; 81003; 83880; 84145; 84443; 84484; 85025; 93005; 94640; 96374; 99285; C8929; G0378; J1644; J1940; J7613; J7620; J7626; Q9957; J2930; J7512

== ENCOUNTER → 2019-07-02 | Outpatient (CLI) | payer MEDICARE ==
[~2019-07-02] MED LIST changes: +OMNIPAQUE 350 MG/ML, 100ML BOTTLE ONE; +SERT100T PO
== END | disposition home or self-care (01) ==
LOC: RAD 10:42
PROVIDERS: ATTEND Family Medicine
DX: I51.7 Cardiomegaly (principal); J44.1 Chronic obstructive pulmonary disease with (acute) exacerbation; R00.0 Tachycardia, unspecified; R06.09 Other forms of dyspnea; Q20.9 Congenital malformation of cardiac chambers and connections, unspecified; E11.9 Type 2 diabetes mellitus without complications; G89.29 Other chronic pain; G47.30 Sleep apnea, unspecified; F32.9 Major depressive disorder, single episode, unspecified; F41.9 Anxiety disorder, unspecified
CPT/HCPCS: 71275; Q9967

== ENCOUNTER 2019-09-23 18:46 | Inpatient (IN) | payer MEDICARE ==
[~2019-09-23] VITALS: Ht 167.6 cm; Wt 173.8 kg
[~2019-09-23 18:46] MED LIST changes: -OMNIPAQUE 350 MG/ML, 100ML BOTTLE ONE
[2019-09-23] MEDS ORDERED: SODIUM CHLORIDE FLUSH 10ML SYR IVF ONE (19:00)
[2019-09-23 19:11] LABS: BASOPHILS # (AUTO) 0.04 x10^3/uL (0-0.1); BASOPHILS % (AUTO) 0 % (0-1); EOSINOPHILS # (AUTO) 0.17 x10^3/uL (0-0.4); EOSINOPHILS % (AUTO) 1 % (1-7); LYMPHOCYTES % (AUTO) 15 % (22-44); MD NO; MEAN CORPUSCULAR HEMOGLOBIN 30.7 pg (27.0-34.8); MEAN CORPUSCULAR HGB CONC 31.9 g/dL (32.4-35.8); MEAN CORPUSCULAR VOLUME 96.4 fL (80-100); MEAN PLATELET VOLUME 8.3 fL (7.4-10.4); MONOCYTES # (AUTO) 0.66 x10^3/uL (0.2-0.8); MONOCYTES % (AUTO) 5 % (2-9); NEUTROPHILS # (AUTO) 9.94 x10^3/uL (1.8-6.8); NEUTROPHILS % (AUTO) 78 % (42-75); PLATELET COUNT 333 x10^3/uL (130-400); RED BLOOD COUNT 4.07 x10^6/uL (3.82-5.3); RED CELL DISTRIBUTION WIDTH 14.5 % (9.6-15.2)
--- NOTE | 2019-09-23 19:20 | NUR ---
PT IN HOSPITAL GOWN. ABLE TO ASSIST PT TO BEDSIDE COMMODE, THEN ASSIST PT BACK TO BED. LAB IN TO DRAW BLOOD. CXR IN WELL. CALL LIGHT WITHIN REACH. PT ON CARDIAC AND VITALS MONITORS. PT USUALLY USES 4L OF O2 AT HOME, PT CURRENTLY SATING 93% ON 5L PER N/C. WILL CONTINUE TO MONITOR.
[2019-09-23 19:25] LABS: ALBUMIN 3.4 g/dL (3.4-5.0); CALCIUM 8.6 mg/dL (8.5-10.1); CREATININE 0.77 mg/dL (0.55-1.02)
[2019-09-23 19:29] LABS: TROPONIN I < 0.015 ng/mL (0.000-0.045)
[2019-09-23 19:41] LABS: ANION GAP 4 mmol/L (5-15); CHLORIDE 98 mmol/L (98-107)
[2019-09-23] MEDS ORDERED: SERT100T32 PO (20:03)
--- NOTE | 2019-09-23 20:05 | NUR ---
PT RESTING IN BED. NO C/O PAIN. PT REQUESTING FOOD, ASKED PT TO WAIT UNTIL ERP COMES IN TO SEE HER. PT UP FOR RECHECK, ALL LABS AND IMAGING HAS RESULTED. VSS, CALL LIGHT WITHIN REACH. WILL CONTINUE TO MONITOR.
[2019-09-23] MEDS ORDERED: SODIUM CHLORIDE FLUSH 10ML SYR IVF PRN (21:30)
--- NOTE | 2019-09-23 21:38 | NUR ---
PT PROVIDED WITH SNACKS AT THIS TIME. AWAITING ROOM ASSINGMENT. PT IS RESTING IN [facility] AT THIS TIME; NADN. CALL LIGHT IS WITHIN REACH.
[2019-09-23] MEDS ORDERED: DEXTROSE 50%, 50ML SYRINGE IVPush PRN (22:00)
[2019-09-23] MEDS ORDERED: DEXTROSE 4 GM TAB.CHEW PO PRN (22:00)
[2019-09-23] MEDS ORDERED: ENALAPRILAT 1.25 MG/ML, 2ML IVPush PRN (22:00)
[2019-09-23] MEDS ORDERED: FUROSEMIDE 40 MG/4 ML IV SCH (22:00)
[2019-09-23] MEDS ORDERED: DOCUSATE 100 MG CAPSULE PO PRN (22:00)
[2019-09-23] MEDS ORDERED: ONDANSETRON ODT 4 MG PO PRN (22:00)
[2019-09-23] MEDS ORDERED: GLUCAGON 1 MG IM PRN (22:00)
[2019-09-23] MEDS ORDERED: FUROSEMIDE 100 MG/10 ML IV ONE (22:30)
[2019-09-23] MEDS ORDERED: IPRATROPIUM 0.5 MG/2.5 ML INHA HHN PRN (22:30)
[2019-09-23] MEDS ORDERED: HYDROcodone/APAP 5/325 TABLET ONE (22:37)
[2019-09-23] MEDS: SERTRALINE 100MG TABLET PO SCH (22:45)
[2019-09-23] MEDS: HEPARIN 5,000 UNITS/ML, 1ML SQ SCH (22:45)
[2019-09-23] MEDS: ATORVASTATIN 20 MG TABLET PO SCH (22:45)
[2019-09-23 22:56] VITALS: BP 148/84
[2019-09-24 01:54] VITALS: BP 135/82
[2019-09-24] MEDS ORDERED: ALBUTEROL SULFATE 2.5 MG/3 ML ONE (03:40)
[2019-09-24] MEDS ORDERED: ALBUTEROL SULFATE 2.5 MG/3 ML NPPB PRN (04:00)
[2019-09-24 05:04] LABS: BASOPHILS # (AUTO) 0.07 x10^3/uL (0-0.1); BASOPHILS % (AUTO) 1 % (0-1); EOSINOPHILS # (AUTO) 0.17 x10^3/uL (0-0.4); EOSINOPHILS % (AUTO) 2 % (1-7); LYMPHOCYTES # (AUTO) 1.43 x10^3/uL (1-3.4); LYMPHOCYTES % (AUTO) 12 % (22-44); MD NO; MEAN CORPUSCULAR HEMOGLOBIN 30.3 pg (27.0-34.8); MEAN CORPUSCULAR HGB CONC 31.3 g/dL (32.4-35.8); MEAN CORPUSCULAR VOLUME 96.8 fL (80-100); MEAN PLATELET VOLUME 8.6 fL (7.4-10.4); MONOCYTES # (AUTO) 0.76 x10^3/uL (0.2-0.8); MONOCYTES % (AUTO) 7 % (2-9); NEUTROPHILS % (AUTO) 79 % (42-75); PLATELET COUNT 290 x10^3/uL (130-400); RED BLOOD COUNT 4.02 x10^6/uL (3.82-5.3); RED CELL DISTRIBUTION WIDTH 14.2 % (9.6-15.2)
[2019-09-24 05:24] LABS: CHLORIDE 98 mmol/L (98-107)
[2019-09-24 05:25] LABS: ANION GAP 2 mmol/L (5-15); CALCIUM 8.5 mg/dL (8.5-10.1); CREATININE 0.73 mg/dL (0.55-1.02)
[2019-09-24] MEDS: HEPARIN 5,000 UNITS/ML, 1ML SQ SCH ×3 (06:16→21:31)
[2019-09-24] MEDS: INSULIN LISPRO 100 UNITS/ML, PEN SQ-INSULIN SCH ×4 (07:00→21:45)
[2019-09-24] MEDS ORDERED: FUROSEMIDE 40 MG/4 ML IV SCH (07:30)
[2019-09-24 08:30] VITALS: BP 154/72
[2019-09-24] MEDS: POTASSIUM CHLORIDE 20 MEQ TAB.ER.PRT PO SCH (09:43)
[2019-09-24] MEDS: FUROSEMIDE 40 MG TABLET PO SCH ×2 (09:43→21:31)
[2019-09-24] MEDS: SERTRALINE 100MG TABLET PO SCH ×2 (09:44→21:30)
[2019-09-24] MEDS: SODIUM CHLORIDE FLUSH 10ML SYR IVF SCH ×2 (09:46→21:32)
[2019-09-24 14:12] VITALS: BP 156/75
[2019-09-24] MEDS ORDERED: FUROSEMIDE 40 MG TABLET PO SCH (17:00)
[2019-09-24 20:32] VITALS: BP 162/72
[2019-09-24] MEDS: ATORVASTATIN 20 MG TABLET PO SCH (21:31)
[2019-09-25 00:33] VITALS: BP 139/67
[2019-09-25] MEDS ORDERED: ACETAMINOPHEN 500 MG TABLET PO ONE (01:00)
[2019-09-25] MEDS: HEPARIN 5,000 UNITS/ML, 1ML SQ SCH ×3 (05:39→22:44)
[2019-09-25 05:54] LABS: BASOPHILS # (AUTO) 0.05 x10^3/uL (0-0.1); BASOPHILS % (AUTO) 1 % (0-1); EOSINOPHILS # (AUTO) 0.11 x10^3/uL (0-0.4); EOSINOPHILS % (AUTO) 1 % (1-7); LYMPHOCYTES # (AUTO) 1.28 x10^3/uL (1-3.4); LYMPHOCYTES % (AUTO) 13 % (22-44); MD NO; MEAN CORPUSCULAR HEMOGLOBIN 30.2 pg (27.0-34.8); MEAN CORPUSCULAR HGB CONC 31.3 g/dL (32.4-35.8); MEAN CORPUSCULAR VOLUME 96.5 fL (80-100); MEAN PLATELET VOLUME 8.3 fL (7.4-10.4); MONOCYTES # (AUTO) 0.61 x10^3/uL (0.2-0.8); MONOCYTES % (AUTO) 6 % (2-9); NEUTROPHILS % (AUTO) 79 % (42-75); PLATELET COUNT 284 x10^3/uL (130-400); RED CELL DISTRIBUTION WIDTH 14.4 % (9.6-15.2)
[2019-09-25 06:10] LABS: ALANINE AMINOTRANSFERASE 35 U/L (12-78); ALBUMIN 3.2 g/dL (3.4-5.0); ALKALINE PHOSPHATASE 98 U/L (45-117); BILIRUBIN,TOTAL 0.2 mg/dL (0.2-1.0); TOTAL PROTEIN 6.6 g/dL (6.4-8.2)
[2019-09-25 06:18] LABS: ANION GAP 2 mmol/L (5-15); CHLORIDE 100 mmol/L (98-107)
[2019-09-25 08:05] VITALS: BP 139/68
[2019-09-25] MEDS: FUROSEMIDE 40 MG/4 ML IV SCH ×2 (08:37→17:47)
[2019-09-25] MEDS: INSULIN LISPRO 100 UNITS/ML, PEN SQ-INSULIN SCH ×4 (08:37→21:00)
[2019-09-25] MEDS: SODIUM CHLORIDE FLUSH 10ML SYR IVF SCH ×2 (08:37→22:43)
[2019-09-25] MEDS: SERTRALINE 100MG TABLET PO SCH ×3 (08:38→22:43)
[2019-09-25] MEDS: POTASSIUM CHLORIDE 20 MEQ TAB.ER.PRT PO SCH (08:38)
[2019-09-25 13:57] VITALS: BP 143/68
[2019-09-25 18:37] VITALS: BP 173/71
[2019-09-25] MEDS: ATORVASTATIN 20 MG TABLET PO SCH ×2 (21:00→22:43)
[2019-09-25 23:46] LABS: BASOPHILS # (AUTO) 0.07 x10^3/uL (0-0.1); BASOPHILS % (AUTO) 1 % (0-1); EOSINOPHILS # (AUTO) 0.21 x10^3/uL (0-0.4); EOSINOPHILS % (AUTO) 2 % (1-7); LYMPHOCYTES # (AUTO) 1.73 x10^3/uL (1-3.4); LYMPHOCYTES % (AUTO) 15 % (22-44); MD NO; MEAN CORPUSCULAR HEMOGLOBIN 30.4 pg (27.0-34.8); MEAN CORPUSCULAR HGB CONC 31.2 g/dL (32.4-35.8); MEAN CORPUSCULAR VOLUME 97.5 fL (80-100); MEAN PLATELET VOLUME 8.3 fL (7.4-10.4); MONOCYTES # (AUTO) 0.72 x10^3/uL (0.2-0.8); MONOCYTES % (AUTO) 6 % (2-9); NEUTROPHILS # (AUTO) 8.83 x10^3/uL (1.8-6.8); NEUTROPHILS % (AUTO) 76 % (42-75); PLATELET COUNT 299 x10^3/uL (130-400); RED BLOOD COUNT 4.34 x10^6/uL (3.82-5.3); RED CELL DISTRIBUTION WIDTH 15.1 % (9.6-15.2)
[2019-09-26 00:03] LABS: ANION GAP 1 mmol/L (5-15); CHLORIDE 98 mmol/L (98-107)
[2019-09-26 00:07] LABS: CREATININE 0.72 mg/dL (0.55-1.02)
[2019-09-26] MEDS ORDERED: ALBUTEROL/IPRATROPIUM 2.5MG/0.5MG, 3 ML ONE (03:05)
[2019-09-26] MEDS ORDERED: NOREPINEPHRINE 8 MG in SODIUM CHLORIDE 0.9% 242 ML IV PRN (03:07)
[2019-09-26] MEDS: ALBUTEROL/IPRATROPIUM 2.5MG/0.5MG, 3 ML INLINE SCH ×6 (03:16→22:18)
[2019-09-26] MEDS ORDERED: DEXTROSE 4 GM TAB.CHEW PO PRN (03:30)
[2019-09-26] MEDS ORDERED: SENNA/DOCUSATE TABLET NG PRN (03:30)
[2019-09-26] MEDS ORDERED: PHARMACY MAY ADJ FOR RENAL FX MC SCH (03:30)
[2019-09-26] MEDS ORDERED: FUROSEMIDE 40 MG/4 ML IV ONE (03:30)
[2019-09-26] MEDS ORDERED: HEPARIN 5,000 UNITS/ML, 1ML SQ SCH (03:30)
[2019-09-26] MEDS ORDERED: LIDOCAINE-MPF 1%, 2ML ENDO PRN (03:30)
[2019-09-26] MEDS ORDERED: GLUCAGON 1 MG IM PRN (03:30)
[2019-09-26] MEDS ORDERED: DEXTROSE 50%, 50ML SYRINGE IVPush PRN (03:30)
[2019-09-26] MEDS ORDERED: BISACODYL 10 MG SUPP PR PRN (03:30)
[2019-09-26] MEDS: FENTANYL PF 100 MCG/2ML IVPush PRN ×2 (03:48→07:55)
[2019-09-26 03:55] LABS: BASOPHILS # (AUTO) 0.01 x10^3/uL (0-0.1); BASOPHILS % (AUTO) 0 % (0-1); EOSINOPHILS # (AUTO) 0.09 x10^3/uL (0-0.4); EOSINOPHILS % (AUTO) 1 % (1-7); LYMPHOCYTES # (AUTO) 0.73 x10^3/uL (1-3.4); LYMPHOCYTES % (AUTO) 7 % (22-44); MD NO; MEAN CORPUSCULAR HEMOGLOBIN 30.7 pg (27.0-34.8); MEAN CORPUSCULAR HGB CONC 31.8 g/dL (32.4-35.8); MEAN CORPUSCULAR VOLUME 96.4 fL (80-100); MEAN PLATELET VOLUME 8.5 fL (7.4-10.4); MONOCYTES # (AUTO) 0.29 x10^3/uL (0.2-0.8); MONOCYTES % (AUTO) 3 % (2-9); NEUTROPHILS % (AUTO) 89 % (42-75); PLATELET COUNT 278 x10^3/uL (130-400); RED BLOOD COUNT 3.89 x10^6/uL (3.82-5.3); RED CELL DISTRIBUTION WIDTH 14.6 % (9.6-15.2)
[2019-09-26 04:01] LABS: INTERNATIONAL NORMALIZED RATIO 0.96 (0.93-1.1); PROTHROMBIN TIME 10.2 Seconds (9.6-11.5)
[2019-09-26 04:04] LABS: ALANINE AMINOTRANSFERASE 31 U/L (12-78); CALCIUM 8.7 mg/dL (8.5-10.1); CREATININE 0.61 mg/dL (0.55-1.02)
[2019-09-26 04:06] LABS: ALKALINE PHOSPHATASE 94 U/L (45-117); BILIRUBIN,TOTAL 0.3 mg/dL (0.2-1.0); TOTAL PROTEIN 6.4 g/dL (6.4-8.2)
[2019-09-26 04:09] LABS: TRIGLYCERIDES 147 mg/dL (50-200)
[2019-09-26] MEDS: PROPOFOL 100 ML IV PRN ×10 (04:11→22:38)
[2019-09-26 04:13] LABS: TROPONIN I < 0.015 ng/mL (0.000-0.045)
[2019-09-26 04:14] LABS: ANION GAP 5 mmol/L (5-15); CHLORIDE 100 mmol/L (98-107)
[2019-09-26] MEDS: HEPARIN 5,000 UNITS/ML, 1ML SQ SCH ×3 (06:35→22:39)
[2019-09-26] MEDS: FUROSEMIDE 40 MG/4 ML IV SCH ×2 (07:54→16:47)
[2019-09-26] MEDS ORDERED: PROPOFOL 10 MG/ML, 100ML IV ONE (08:00)
[2019-09-26] MEDS ORDERED: ETOMIDATE 20 MG/10 ML ONE (08:00)
[2019-09-26] MEDS ORDERED: SUCCINYLCHOLINE 20 MG/ML, 10ML ONE (08:00)
[2019-09-26] MEDS: SERTRALINE 100MG TABLET PO SCH ×2 (09:57→20:36)
[2019-09-26] MEDS: POTASSIUM CHLORIDE 20 MEQ TAB.ER.PRT PO SCH (09:57)
[2019-09-26] MEDS: SODIUM CHLORIDE FLUSH 10ML SYR IVF SCH ×2 (09:57→22:46)
[2019-09-26] MEDS: PANTOPRAZOLE 40 MG IV IV SCH (09:57)
[2019-09-26 09:59] LABS: TROPONIN I < 0.015 ng/mL (0.000-0.045)
[2019-09-26] MEDS ORDERED: AcetaZOLAMIDE INJ 500 MG IVPush ONE (10:30)
[2019-09-26] MEDS ORDERED: POTASSIUM CHLORIDE 20 MEQ in SODIUM CHLORIDE 0.9% 250 ML IV ONE (10:30)
--- NOTE | 2019-09-26 10:40 | NUR ---
09/25-TF Goal: with or without propofol: VITAL HIGH PROTEIN @ 70ml/hr
[2019-09-26] MEDS: INSULIN LISPRO 100 UNITS/ML, PEN SQ-INSULIN SCH ×3 (11:00→22:45)
[2019-09-26] MEDS: FENTANYL PF 1,000 MCG in SODIUM CHLORIDE 0.9% 80 ML IV PRN (12:58)
[2019-09-26] MEDS: ATORVASTATIN 20 MG TABLET PO SCH (20:37)
[2019-09-27] MEDS: PROPOFOL 100 ML IV PRN ×10 (00:40→22:54)
[2019-09-27] MEDS: ALBUTEROL/IPRATROPIUM 2.5MG/0.5MG, 3 ML INLINE SCH ×6 (02:15→21:41)
[2019-09-27 04:28] LABS: BASOPHILS # (AUTO) 0.02 x10^3/uL (0-0.1); BASOPHILS % (AUTO) 0 % (0-1); EOSINOPHILS # (AUTO) 0.16 x10^3/uL (0-0.4); EOSINOPHILS % (AUTO) 1 % (1-7); LYMPHOCYTES # (AUTO) 1.03 x10^3/uL (1-3.4); LYMPHOCYTES % (AUTO) 8 % (22-44); MD NO; MEAN CORPUSCULAR HEMOGLOBIN 30.3 pg (27.0-34.8); MEAN CORPUSCULAR HGB CONC 31.8 g/dL (32.4-35.8); MEAN CORPUSCULAR VOLUME 95.3 fL (80-100); MEAN PLATELET VOLUME 8.5 fL (7.4-10.4); MONOCYTES # (AUTO) 0.88 x10^3/uL (0.2-0.8); MONOCYTES % (AUTO) 7 % (2-9); NEUTROPHILS # (AUTO) 11.34 x10^3/uL (1.8-6.8); NEUTROPHILS % (AUTO) 84 % (42-75); PLATELET COUNT 263 x10^3/uL (130-400); RED BLOOD COUNT 4.02 x10^6/uL (3.82-5.3); RED CELL DISTRIBUTION WIDTH 14.3 % (9.6-15.2)
[2019-09-27 04:34] LABS: ANION GAP 4 mmol/L (5-15); CALCIUM 8.7 mg/dL (8.5-10.1); CHLORIDE 98 mmol/L (98-107); CREATININE 0.69 mg/dL (0.55-1.02)
[2019-09-27] MEDS: INSULIN LISPRO 100 UNITS/ML, PEN SQ-INSULIN SCH ×4 (05:37→23:56)
[2019-09-27] MEDS: HEPARIN 5,000 UNITS/ML, 1ML SQ SCH ×3 (05:38→23:48)
[2019-09-27] MEDS ORDERED: POTASSIUM CHLORIDE 10% 40 MEQ/30 ML UDC NG ONE (07:00)
[2019-09-27] MEDS ORDERED: POTASSIUM CHLORIDE 20 MEQ in SODIUM CHLORIDE 0.9% 250 ML IV ONE (08:30)
[2019-09-27] MEDS ORDERED: FUROSEMIDE 40 MG/4 ML ONE (08:50)
[2019-09-27] MEDS: PANTOPRAZOLE 40 MG IV IV SCH (08:59)
[2019-09-27] MEDS: SODIUM CHLORIDE FLUSH 10ML SYR IVF SCH ×2 (09:00→21:23)
[2019-09-27] MEDS: AcetaZOLAMIDE INJ 500 MG IVPush SCH (09:04)
[2019-09-27] MEDS: SERTRALINE 100MG TABLET PO SCH ×2 (09:05→21:23)
[2019-09-27] MEDS: FENTANYL PF 1,000 MCG in SODIUM CHLORIDE 0.9% 80 ML IV PRN (09:21)
[2019-09-27] MEDS: FUROSEMIDE 40 MG/4 ML IV SCH (16:59)
[2019-09-27] MEDS: ATORVASTATIN 20 MG TABLET PO SCH (21:23)
[2019-09-28] MEDS: PROPOFOL 100 ML IV PRN ×7 (01:39→23:51)
[2019-09-28] MEDS: ALBUTEROL/IPRATROPIUM 2.5MG/0.5MG, 3 ML INLINE SCH ×6 (02:02→23:28)
[2019-09-28] MEDS: FENTANYL PF 1,000 MCG in SODIUM CHLORIDE 0.9% 80 ML IV PRN (04:35)
[2019-09-28 04:48] LABS: BASOPHILS # (AUTO) 0.03 x10^3/uL (0-0.1); BASOPHILS % (AUTO) 0 % (0-1); EOSINOPHILS # (AUTO) 0.27 x10^3/uL (0-0.4); EOSINOPHILS % (AUTO) 2 % (1-7); LYMPHOCYTES # (AUTO) 0.73 x10^3/uL (1-3.4); LYMPHOCYTES % (AUTO) 6 % (22-44); MD NO; MEAN CORPUSCULAR HEMOGLOBIN 30.1 pg (27.0-34.8); MEAN CORPUSCULAR HGB CONC 31.8 g/dL (32.4-35.8); MEAN CORPUSCULAR VOLUME 94.7 fL (80-100); MEAN PLATELET VOLUME 8.8 fL (7.4-10.4); MONOCYTES # (AUTO) 0.58 x10^3/uL (0.2-0.8); MONOCYTES % (AUTO) 4 % (2-9); NEUTROPHILS # (AUTO) 11.54 x10^3/uL (1.8-6.8); NEUTROPHILS % (AUTO) 88 % (42-75); PLATELET COUNT 239 x10^3/uL (130-400); RED BLOOD COUNT 3.88 x10^6/uL (3.82-5.3); RED CELL DISTRIBUTION WIDTH 14.5 % (9.6-15.2)
[2019-09-28 04:58] LABS: ANION GAP 7 mmol/L (5-15); CALCIUM 8.3 mg/dL (8.5-10.1); CHLORIDE 99 mmol/L (98-107); CREATININE 0.68 mg/dL (0.55-1.02)
[2019-09-28] MEDS: INSULIN LISPRO 100 UNITS/ML, PEN SQ-INSULIN SCH ×4 (05:00→22:50)
[2019-09-28] MEDS ORDERED: POTASSIUM CHLORIDE 40 MEQ in SODIUM CHLORIDE 0.9% 500 ML IV ONE (08:00)
[2019-09-28 08:27] LABS: INTERNATIONAL NORMALIZED RATIO 0.93 (0.93-1.1); PROTHROMBIN TIME 9.9 Seconds (9.6-11.5)
[2019-09-28] MEDS: SERTRALINE 100MG TABLET PO SCH ×2 (08:39→20:57)
[2019-09-28] MEDS: hydrOXyzine 10MG TABLET PO PRN ×2 (08:39→17:00)
[2019-09-28] MEDS: LACTULOSE 20 GM/30 ML UDC NG PRN (08:39)
[2019-09-28] MEDS: FUROSEMIDE 40 MG/4 ML IV SCH ×2 (08:40→15:37)
[2019-09-28] MEDS: HEPARIN 5,000 UNITS/ML, 1ML SQ SCH ×3 (08:40→23:50)
[2019-09-28] MEDS: AcetaZOLAMIDE INJ 500 MG IVPush SCH (08:41)
[2019-09-28] MEDS: SODIUM CHLORIDE FLUSH 10ML SYR IVF SCH ×2 (12:14→20:57)
[2019-09-28] MEDS: PANTOPRAZOLE 40 MG IV IV SCH (15:01)
[2019-09-28] MEDS: POTASSIUM CHLORIDE 20 MEQ TAB.ER.PRT PO SCH (15:37)
[2019-09-28 19:07] LABS: MICROSCOPIC INDICATED
[2019-09-28 19:08] LABS: CULTURE INDICATED? YES
[2019-09-28] MEDS: ATORVASTATIN 20 MG TABLET PO SCH (20:57)
[2019-09-29] MEDS: PROPOFOL 100 ML IV PRN ×6 (03:12→23:15)
[2019-09-29] MEDS: ALBUTEROL/IPRATROPIUM 2.5MG/0.5MG, 3 ML INLINE SCH ×6 (03:30→22:09)
[2019-09-29 03:51] LABS: BASOPHILS # (AUTO) 0.02 x10^3/uL (0-0.1); BASOPHILS % (AUTO) 0 % (0-1); EOSINOPHILS # (AUTO) 0.21 x10^3/uL (0-0.4); EOSINOPHILS % (AUTO) 2 % (1-7); LYMPHOCYTES # (AUTO) 0.78 x10^3/uL (1-3.4); LYMPHOCYTES % (AUTO) 6 % (22-44); MD NO; MEAN CORPUSCULAR HEMOGLOBIN 30.6 pg (27.0-34.8); MEAN CORPUSCULAR HGB CONC 32.2 g/dL (32.4-35.8); MEAN CORPUSCULAR VOLUME 95.2 fL (80-100); MEAN PLATELET VOLUME 8.8 fL (7.4-10.4); MONOCYTES # (AUTO) 0.79 x10^3/uL (0.2-0.8); MONOCYTES % (AUTO) 6 % (2-9); NEUTROPHILS # (AUTO) 11.92 x10^3/uL (1.8-6.8); NEUTROPHILS % (AUTO) 87 % (42-75); PLATELET COUNT 234 x10^3/uL (130-400); RED BLOOD COUNT 3.82 x10^6/uL (3.82-5.3)
[2019-09-29 03:59] LABS: ANION GAP 1 mmol/L (5-15); CALCIUM 8.9 mg/dL (8.5-10.1); CHLORIDE 98 mmol/L (98-107); CREATININE 0.59 mg/dL (0.55-1.02); TRIGLYCERIDES 151 mg/dL (50-200)
[2019-09-29] MEDS: INSULIN LISPRO 100 UNITS/ML, PEN SQ-INSULIN SCH ×4 (04:59→23:14)
[2019-09-29] MEDS: CEFTRIAXONE PMX 1GM/50ML 50 ML IV SCH (06:02)
[2019-09-29] MEDS: hydrOXyzine 10MG TABLET PO PRN (06:27)
[2019-09-29] MEDS ORDERED: INSULIN LISPRO 100 UNITS/ML, PEN SQ-INSULIN SCH (07:00)
[2019-09-29] MEDS: PANTOPRAZOLE 40 MG IV IV SCH (08:32)
[2019-09-29] MEDS: SODIUM CHLORIDE FLUSH 10ML SYR IVF SCH ×2 (08:33→21:04)
[2019-09-29] MEDS: SERTRALINE 100MG TABLET PO SCH ×2 (08:33→20:52)
[2019-09-29] MEDS: FUROSEMIDE 40 MG/4 ML IV SCH ×3 (08:33→20:52)
[2019-09-29] MEDS: POTASSIUM CHLORIDE 20 MEQ TAB.ER.PRT PO SCH (08:33)
[2019-09-29] MEDS: HEPARIN 5,000 UNITS/ML, 1ML SQ SCH ×3 (08:34→23:54)
[2019-09-29] MEDS: FENTANYL PF 1,000 MCG in SODIUM CHLORIDE 0.9% 80 ML IV PRN (14:39)
[2019-09-29] MEDS: LACTULOSE 20 GM/30 ML UDC NG PRN (15:26)
[2019-09-29] MEDS: SENNA 176 MG/5 ML ORAL SOL NG PRN (15:27)
[2019-09-29] MEDS ORDERED: POTASSIUM CHLORIDE 20 MEQ TAB.ER.PRT PO SCH (17:00)
[2019-09-29] MEDS: POTASSIUM CHLORIDE 10% 40 MEQ/30 ML UDC PO SCH (20:52)
[2019-09-29] MEDS: ATORVASTATIN 20 MG TABLET PO SCH (20:52)
[2019-09-30] MEDS: PROPOFOL 100 ML IV PRN ×6 (02:05→22:00)
[2019-09-30] MEDS: ALBUTEROL/IPRATROPIUM 2.5MG/0.5MG, 3 ML INLINE SCH ×6 (02:06→22:50)
[2019-09-30] MEDS: INSULIN LISPRO 100 UNITS/ML, PEN SQ-INSULIN SCH ×4 (04:51→22:04)
[2019-09-30 04:56] LABS: BASOPHILS # (AUTO) 0.05 x10^3/uL (0-0.1); BASOPHILS % (AUTO) 0 % (0-1); EOSINOPHILS # (AUTO) 0.26 x10^3/uL (0-0.4); EOSINOPHILS % (AUTO) 2 % (1-7); LYMPHOCYTES # (AUTO) 0.86 x10^3/uL (1-3.4); LYMPHOCYTES % (AUTO) 7 % (22-44); MD NO; MEAN CORPUSCULAR HEMOGLOBIN 30.5 pg (27.0-34.8); MEAN CORPUSCULAR VOLUME 95.4 fL (80-100); MONOCYTES # (AUTO) 1.11 x10^3/uL (0.2-0.8); MONOCYTES % (AUTO) 9 % (2-9); NEUTROPHILS # (AUTO) 10.83 x10^3/uL (1.8-6.8); NEUTROPHILS % (AUTO) 83 % (42-75); PLATELET COUNT 240 x10^3/uL (130-400); RED BLOOD COUNT 3.71 x10^6/uL (3.82-5.3); RED CELL DISTRIBUTION WIDTH 14.4 % (9.6-15.2)
[2019-09-30 05:05] LABS: ALBUMIN 2.5 g/dL (3.4-5.0); ANION GAP 4 mmol/L (5-15); CALCIUM 8.9 mg/dL (8.5-10.1); CHLORIDE 100 mmol/L (98-107)
[2019-09-30 05:09] LABS: ALANINE AMINOTRANSFERASE 24 U/L (12-78); ALKALINE PHOSPHATASE 93 U/L (45-117); BILIRUBIN,TOTAL 0.3 mg/dL (0.2-1.0); CREATININE 0.61 mg/dL (0.55-1.02); TOTAL PROTEIN 6.6 g/dL (6.4-8.2)
[2019-09-30] MEDS: CEFTRIAXONE PMX 1GM/50ML 50 ML IV SCH (06:06)
[2019-09-30] MEDS: SERTRALINE 100MG TABLET PO SCH ×2 (07:47→22:00)
[2019-09-30] MEDS: HEPARIN 5,000 UNITS/ML, 1ML SQ SCH ×2 (07:47→15:58)
[2019-09-30] MEDS: SODIUM CHLORIDE FLUSH 10ML SYR IVF SCH ×2 (07:47→21:59)
[2019-09-30] MEDS: PANTOPRAZOLE 40 MG IV IV SCH (07:47)
[2019-09-30] MEDS: POTASSIUM CHLORIDE 10% 40 MEQ/30 ML UDC PO SCH ×2 (07:47→22:00)
[2019-09-30] MEDS: FUROSEMIDE 40 MG/4 ML IV SCH ×3 (07:47→22:00)
[2019-09-30] MEDS: FENTANYL PF 1,000 MCG in SODIUM CHLORIDE 0.9% 80 ML IV PRN (11:09)
[2019-09-30] MEDS: LACTULOSE 20 GM/30 ML UDC NG PRN (15:58)
[2019-09-30] MEDS: SENNA 176 MG/5 ML ORAL SOL NG PRN (15:59)
[2019-09-30] MEDS ORDERED: INSULIN GLARGINE 100 UNITS/ML, PEN SQ-INSULIN SCH (21:00)
[2019-09-30] MEDS: ATORVASTATIN 20 MG TABLET PO SCH (22:00)
[2019-10-01] MEDS: HEPARIN 5,000 UNITS/ML, 1ML SQ SCH ×3 (00:07→15:39)
[2019-10-01] MEDS: PROPOFOL 100 ML IV PRN ×5 (00:07→20:09)
[2019-10-01] MEDS: ALBUTEROL/IPRATROPIUM 2.5MG/0.5MG, 3 ML INLINE SCH ×6 (02:59→22:42)
[2019-10-01] MEDS: INSULIN LISPRO 100 UNITS/ML, PEN SQ-INSULIN SCH ×3 (04:13→22:28)
[2019-10-01 04:34] LABS: BASOPHILS # (AUTO) 0.02 x10^3/uL (0-0.1); BASOPHILS % (AUTO) 0 % (0-1); EOSINOPHILS # (AUTO) 0.29 x10^3/uL (0-0.4); EOSINOPHILS % (AUTO) 2 % (1-7); LYMPHOCYTES # (AUTO) 1.26 x10^3/uL (1-3.4); LYMPHOCYTES % (AUTO) 9 % (22-44); MD NO; MEAN CORPUSCULAR HEMOGLOBIN 30.7 pg (27.0-34.8); MEAN CORPUSCULAR HGB CONC 32.1 g/dL (32.4-35.8); MEAN CORPUSCULAR VOLUME 95.8 fL (80-100); MONOCYTES # (AUTO) 0.92 x10^3/uL (0.2-0.8); MONOCYTES % (AUTO) 7 % (2-9); NEUTROPHILS # (AUTO) 11.17 x10^3/uL (1.8-6.8); NEUTROPHILS % (AUTO) 82 % (42-75); PLATELET COUNT 262 x10^3/uL (130-400); RED BLOOD COUNT 3.71 x10^6/uL (3.82-5.3)
[2019-10-01 04:45] LABS: CHLORIDE 101 mmol/L (98-107)
[2019-10-01 04:46] LABS: ANION GAP 5 mmol/L (5-15); CALCIUM 9.2 mg/dL (8.5-10.1); CREATININE 0.67 mg/dL (0.55-1.02)
[2019-10-01] MEDS: CEFTRIAXONE PMX 1GM/50ML 50 ML IV SCH (06:03)
[2019-10-01] MEDS ORDERED: LORazepam 2 MG/ML, 1ML IVPush PRN (06:30)
[2019-10-01] MEDS: FENTANYL PF 1,000 MCG in SODIUM CHLORIDE 0.9% 80 ML IV PRN (06:32)
[2019-10-01] MEDS: SODIUM CHLORIDE FLUSH 10ML SYR IVF SCH ×2 (08:19→22:24)
[2019-10-01] MEDS: FUROSEMIDE 40 MG/4 ML IV SCH ×3 (08:19→22:24)
[2019-10-01] MEDS: PANTOPRAZOLE 40 MG IV IV SCH (08:19)
[2019-10-01] MEDS: SERTRALINE 100MG TABLET PO SCH ×2 (08:20→22:24)
[2019-10-01] MEDS: POTASSIUM CHLORIDE 10% 40 MEQ/30 ML UDC PO SCH ×2 (08:22→22:24)
[2019-10-01] MEDS ORDERED: INSULIN LISPRO 100 UNITS/ML, PEN SQ-INSULIN SCH (11:00)
[2019-10-01] MEDS: PIPERACILLIN/TAZO/PMX 3.375GM 50 ML IV SCH ×2 (13:02→17:29)
[2019-10-01] MEDS ORDERED: MAGNESIUM CITRATE 300ML ORAL SOL PO PRN ×2 (17:00→17:30)
[2019-10-01] MEDS ORDERED: INSULIN GLARGINE 100 UNITS/ML, PEN SQ-INSULIN SCH ×2 (21:00)
[2019-10-01] MEDS: ATORVASTATIN 20 MG TABLET PO SCH (22:24)
[2019-10-02] MEDS: PROPOFOL 100 ML IV PRN ×7 (00:13→23:36)
[2019-10-02] MEDS: PIPERACILLIN/TAZO/PMX 3.375GM 50 ML IV SCH ×5 (00:13→23:35)
[2019-10-02] MEDS: HEPARIN 5,000 UNITS/ML, 1ML SQ SCH ×3 (00:14→16:34)
[2019-10-02] MEDS: ALBUTEROL/IPRATROPIUM 2.5MG/0.5MG, 3 ML INLINE SCH ×6 (02:25→22:48)
[2019-10-02] MEDS: FENTANYL PF 1,000 MCG in SODIUM CHLORIDE 0.9% 80 ML IV PRN ×2 (03:55→21:55)
[2019-10-02] MEDS: INSULIN LISPRO 100 UNITS/ML, PEN SQ-INSULIN SCH ×4 (04:08→21:37)
[2019-10-02 04:44] LABS: BASOPHILS # (AUTO) 0.05 x10^3/uL (0-0.1); BASOPHILS % (AUTO) 0 % (0-1); EOSINOPHILS # (AUTO) 0.19 x10^3/uL (0-0.4); EOSINOPHILS % (AUTO) 2 % (1-7); LYMPHOCYTES % (AUTO) 7 % (22-44); MD NO; MEAN CORPUSCULAR HEMOGLOBIN 30.1 pg (27.0-34.8); MEAN CORPUSCULAR HGB CONC 31.5 g/dL (32.4-35.8); MEAN CORPUSCULAR VOLUME 95.6 fL (80-100); MEAN PLATELET VOLUME 9.4 fL (7.4-10.4); MONOCYTES # (AUTO) 1.01 x10^3/uL (0.2-0.8); MONOCYTES % (AUTO) 9 % (2-9); NEUTROPHILS # (AUTO) 9.65 x10^3/uL (1.8-6.8); NEUTROPHILS % (AUTO) 83 % (42-75); PLATELET COUNT 251 x10^3/uL (130-400); RED BLOOD COUNT 3.51 x10^6/uL (3.82-5.3); RED CELL DISTRIBUTION WIDTH 14.1 % (9.6-15.2)
[2019-10-02 04:54] LABS: ANION GAP 4 mmol/L (5-15); CALCIUM 9.6 mg/dL (8.5-10.1); CHLORIDE 101 mmol/L (98-107); CREATININE 0.72 mg/dL (0.55-1.02); TRIGLYCERIDES 142 mg/dL (50-200)
[2019-10-02] MEDS: LACTULOSE 20 GM/30 ML UDC NG PRN (08:58)
[2019-10-02] MEDS: POTASSIUM CHLORIDE 10% 40 MEQ/30 ML UDC PO SCH ×2 (08:58→21:10)
[2019-10-02] MEDS: FUROSEMIDE 40 MG/4 ML IV SCH ×3 (08:58→21:11)
[2019-10-02] MEDS: SERTRALINE 100MG TABLET PO SCH ×2 (08:58→21:10)
[2019-10-02] MEDS: PANTOPRAZOLE 40 MG IV IV SCH (08:58)
[2019-10-02] MEDS: SODIUM CHLORIDE FLUSH 10ML SYR IVF SCH ×2 (08:59→21:11)
[2019-10-02] MEDS ORDERED: DEXMEDETOMIDINE 200 MCG in SODIUM CHLORIDE 0.9% 48 ML IV PRN (09:00)
[2019-10-02] MEDS ORDERED: AcetaZOLAMIDE INJ 500 MG IVPush ONE (09:00)
[2019-10-02] MEDS: METHYLNALTREXONE 12 MG/0.6 ML SYR SQ SCH (09:19)
[2019-10-02] MEDS ORDERED: VANCOMYCIN PER PHARMACY MC PRN (13:30)
[2019-10-02] MEDS ORDERED: PHARMACOKINETIC CONSULTATION MC ONE (14:30)
[2019-10-02] MEDS ORDERED: PHARMACOKINETIC MONITORING MC PRN (14:30)
[2019-10-02] MEDS ORDERED: VANCOMYCIN 3,000 MG in SODIUM CHLORIDE 0.9% 500 ML IV ONE (15:00)
[2019-10-02] MEDS ORDERED: INSULIN GLARGINE 100 UNITS/ML, PEN SQ-INSULIN SCH (21:00)
[2019-10-02] MEDS: ATORVASTATIN 20 MG TABLET PO SCH (21:10)
[2019-10-03] MEDS: HEPARIN 5,000 UNITS/ML, 1ML SQ SCH ×3 (00:20→16:14)
[2019-10-03] MEDS: ALBUTEROL/IPRATROPIUM 2.5MG/0.5MG, 3 ML INLINE SCH ×6 (02:56→23:30)
[2019-10-03] MEDS: PROPOFOL 100 ML IV PRN ×5 (02:58→21:47)
[2019-10-03] MEDS: INSULIN LISPRO 100 UNITS/ML, PEN SQ-INSULIN SCH ×4 (04:24→23:43)
[2019-10-03 04:55] LABS: ANION GAP 2 mmol/L (5-15); CALCIUM 9.5 mg/dL (8.5-10.1); CHLORIDE 103 mmol/L (98-107); CREATININE 0.73 mg/dL (0.55-1.02)
[2019-10-03 05:00] LABS: BASOPHILS # (AUTO) 0.06 x10^3/uL (0-0.1); BASOPHILS % (AUTO) 1 % (0-1); EOSINOPHILS # (AUTO) 0.27 x10^3/uL (0-0.4); EOSINOPHILS % (AUTO) 2 % (1-7); LYMPHOCYTES # (AUTO) 1.17 x10^3/uL (1-3.4); LYMPHOCYTES % (AUTO) 10 % (22-44); MD NO; MEAN CORPUSCULAR HEMOGLOBIN 30.2 pg (27.0-34.8); MEAN CORPUSCULAR HGB CONC 31.3 g/dL (32.4-35.8); MEAN CORPUSCULAR VOLUME 96.6 fL (80-100); MEAN PLATELET VOLUME 9.4 fL (7.4-10.4); MONOCYTES # (AUTO) 0.87 x10^3/uL (0.2-0.8); MONOCYTES % (AUTO) 7 % (2-9); NEUTROPHILS # (AUTO) 9.41 x10^3/uL (1.8-6.8); NEUTROPHILS % (AUTO) 80 % (42-75); PLATELET COUNT 269 x10^3/uL (130-400); RED BLOOD COUNT 3.39 x10^6/uL (3.82-5.3); RED CELL DISTRIBUTION WIDTH 14.2 % (9.6-15.2)
[2019-10-03] MEDS: PIPERACILLIN/TAZO/PMX 3.375GM 50 ML IV SCH ×3 (05:54→18:29)
[2019-10-03] MEDS ORDERED: AcetaZOLAMIDE INJ 500 MG IVPush ONE (08:30)
[2019-10-03] MEDS: LINEZOLID PMX 600MG/300ML 300 ML IV SCH ×2 (10:09→21:47)
[2019-10-03] MEDS: SODIUM CHLORIDE FLUSH 10ML SYR IVF SCH ×2 (10:10→20:46)
[2019-10-03] MEDS: SERTRALINE 100MG TABLET PO SCH ×2 (10:10→20:45)
[2019-10-03] MEDS: FUROSEMIDE 40 MG/4 ML IV SCH ×3 (10:10→20:45)
[2019-10-03] MEDS: POTASSIUM CHLORIDE 10% 40 MEQ/30 ML UDC PO SCH ×2 (10:10→20:46)
[2019-10-03] MEDS: PANTOPRAZOLE 40 MG IV IV SCH (10:10)
[2019-10-03] MEDS: INSULIN GLARGINE 100 UNITS/ML, PEN SQ-INSULIN SCH ×2 (10:14→21:03)
[2019-10-03 13:11] LABS: FIO2 80 %
[2019-10-03] MEDS ORDERED: VANCOMYCIN 2,600 MG in SODIUM CHLORIDE 0.9% 500 ML IV SCH (15:00)
[2019-10-03] MEDS: ATORVASTATIN 20 MG TABLET PO SCH (20:45)
[2019-10-04] MEDS: PROPOFOL 100 ML IV PRN ×6 (00:06→22:30)
[2019-10-04] MEDS: HEPARIN 5,000 UNITS/ML, 1ML SQ SCH ×3 (00:31→16:21)
[2019-10-04] MEDS: PIPERACILLIN/TAZO/PMX 3.375GM 50 ML IV SCH ×4 (00:31→17:22)
[2019-10-04] MEDS: ALBUTEROL/IPRATROPIUM 2.5MG/0.5MG, 3 ML INLINE SCH ×6 (03:13→22:46)
[2019-10-04] MEDS: INSULIN LISPRO 100 UNITS/ML, PEN SQ-INSULIN SCH ×4 (04:17→20:40)
[2019-10-04 04:33] LABS: BASOPHILS # (AUTO) 0.05 x10^3/uL (0-0.1); BASOPHILS % (AUTO) 1 % (0-1); EOSINOPHILS # (AUTO) 0.25 x10^3/uL (0-0.4); EOSINOPHILS % (AUTO) 2 % (1-7); LYMPHOCYTES # (AUTO) 1.24 x10^3/uL (1-3.4); LYMPHOCYTES % (AUTO) 11 % (22-44); MD NO; MEAN CORPUSCULAR HEMOGLOBIN 30.2 pg (27.0-34.8); MEAN CORPUSCULAR HGB CONC 31.7 g/dL (32.4-35.8); MEAN CORPUSCULAR VOLUME 95.5 fL (80-100); MEAN PLATELET VOLUME 8.8 fL (7.4-10.4); MONOCYTES # (AUTO) 0.81 x10^3/uL (0.2-0.8); MONOCYTES % (AUTO) 8 % (2-9); NEUTROPHILS # (AUTO) 8.48 x10^3/uL (1.8-6.8); NEUTROPHILS % (AUTO) 78 % (42-75); PLATELET COUNT 304 x10^3/uL (130-400); RED BLOOD COUNT 3.48 x10^6/uL (3.82-5.3)
[2019-10-04 04:40] LABS: ANION GAP 3 mmol/L (5-15); CALCIUM 9.4 mg/dL (8.5-10.1); CHLORIDE 103 mmol/L (98-107); CREATININE 0.79 mg/dL (0.55-1.02)
[2019-10-04] MEDS: PANTOPRAZOLE 40 MG IV IV SCH (07:50)
[2019-10-04] MEDS: FUROSEMIDE 40 MG/4 ML IV SCH ×3 (07:50→20:33)
[2019-10-04] MEDS: SODIUM CHLORIDE FLUSH 10ML SYR IVF SCH ×2 (07:51→20:33)
[2019-10-04] MEDS: METHYLNALTREXONE 12 MG/0.6 ML SYR SQ SCH (07:51)
[2019-10-04] MEDS: SERTRALINE 100MG TABLET PO SCH ×2 (07:51→20:33)
[2019-10-04] MEDS: POTASSIUM CHLORIDE 10% 40 MEQ/30 ML UDC PO SCH ×2 (07:51→20:33)
[2019-10-04] MEDS: INSULIN GLARGINE 100 UNITS/ML, PEN SQ-INSULIN SCH ×3 (07:58→20:39)
[2019-10-04] MEDS: LINEZOLID PMX 600MG/300ML 300 ML IV SCH ×2 (10:29→22:30)
[2019-10-04] MEDS: ATORVASTATIN 20 MG TABLET PO SCH (20:33)
[2019-10-05] MEDS: PIPERACILLIN/TAZO/PMX 3.375GM 50 ML IV SCH ×5 (00:41→23:44)
[2019-10-05] MEDS: PROPOFOL 100 ML IV PRN ×8 (00:42→23:44)
[2019-10-05] MEDS: HEPARIN 5,000 UNITS/ML, 1ML SQ SCH ×4 (00:42→23:44)
[2019-10-05] MEDS: ALBUTEROL/IPRATROPIUM 2.5MG/0.5MG, 3 ML INLINE SCH ×6 (02:20→22:15)
[2019-10-05] MEDS: INSULIN LISPRO 100 UNITS/ML, PEN SQ-INSULIN SCH ×4 (04:18→20:51)
[2019-10-05 04:23] LABS: BASOPHILS # (AUTO) 0.06 x10^3/uL (0-0.1); BASOPHILS % (AUTO) 1 % (0-1); EOSINOPHILS # (AUTO) 0.29 x10^3/uL (0-0.4); EOSINOPHILS % (AUTO) 3 % (1-7); LYMPHOCYTES # (AUTO) 1.23 x10^3/uL (1-3.4); LYMPHOCYTES % (AUTO) 12 % (22-44); MD NO; MEAN CORPUSCULAR HEMOGLOBIN 30.3 pg (27.0-34.8); MEAN CORPUSCULAR HGB CONC 31.7 g/dL (32.4-35.8); MEAN CORPUSCULAR VOLUME 95.6 fL (80-100); MONOCYTES % (AUTO) 7 % (2-9); NEUTROPHILS # (AUTO) 8.04 x10^3/uL (1.8-6.8); NEUTROPHILS % (AUTO) 78 % (42-75); PLATELET COUNT 320 x10^3/uL (130-400); RED BLOOD COUNT 3.42 x10^6/uL (3.82-5.3); RED CELL DISTRIBUTION WIDTH 14.1 % (9.6-15.2)
[2019-10-05 04:35] LABS: ANION GAP 4 mmol/L (5-15); CALCIUM 9.2 mg/dL (8.5-10.1); CHLORIDE 102 mmol/L (98-107); CREATININE 0.66 mg/dL (0.55-1.02); TRIGLYCERIDES 169 mg/dL (50-200)
[2019-10-05] MEDS: POTASSIUM CHLORIDE 10% 40 MEQ/30 ML UDC PO SCH ×2 (08:38→20:50)
[2019-10-05] MEDS: FUROSEMIDE 40 MG/4 ML IV SCH ×3 (08:39→20:50)
[2019-10-05] MEDS: SERTRALINE 100MG TABLET PO SCH ×2 (08:39→20:50)
[2019-10-05] MEDS: PANTOPRAZOLE 40 MG IV IV SCH (08:39)
[2019-10-05] MEDS: SODIUM CHLORIDE FLUSH 10ML SYR IVF SCH ×2 (08:40→20:50)
[2019-10-05] MEDS: INSULIN GLARGINE 100 UNITS/ML, PEN SQ-INSULIN SCH (09:02)
[2019-10-05] MEDS: LINEZOLID PMX 600MG/300ML 300 ML IV SCH ×2 (10:05→21:56)
[2019-10-05] MEDS ORDERED: POTASSIUM CHLORIDE 20 MEQ in SODIUM CHLORIDE 0.9% 250 ML IV ONE (11:00)
[2019-10-05] MEDS ORDERED: FUROSEMIDE 20 MG/2 ML IV ONE (11:00)
[2019-10-05 16:03] LABS: ANION GAP 3 mmol/L (5-15); CALCIUM 9.4 mg/dL (8.5-10.1); CHLORIDE 103 mmol/L (98-107); CREATININE 0.64 mg/dL (0.55-1.02)
[2019-10-05] MEDS ORDERED: INSULIN GLARGINE 100 UNITS/ML, PEN SQ-INSULIN SCH ×2 (18:00→21:00)
[2019-10-05] MEDS ORDERED: ACETAMINOPHEN 325 MG TABLET ONE (20:42)
[2019-10-05] MEDS: ACETAMINOPHEN 325 MG TABLET PO PRN (20:50)
[2019-10-05] MEDS: ATORVASTATIN 20 MG TABLET PO SCH (20:50)
[2019-10-05 21:32] LABS: CULTURE INDICATED? YES; MICROSCOPIC INDICATED
[2019-10-06] MEDS: ALBUTEROL/IPRATROPIUM 2.5MG/0.5MG, 3 ML INLINE SCH ×6 (02:30→22:40)
[2019-10-06] MEDS: PROPOFOL 100 ML IV PRN ×9 (02:47→23:15)
[2019-10-06] MEDS: INSULIN LISPRO 100 UNITS/ML, PEN SQ-INSULIN SCH ×4 (04:33→19:32)
[2019-10-06 04:46] LABS: BASOPHILS # (AUTO) 0.05 x10^3/uL (0-0.1); BASOPHILS % (AUTO) 1 % (0-1); EOSINOPHILS # (AUTO) 0.34 x10^3/uL (0-0.4); EOSINOPHILS % (AUTO) 3 % (1-7); LYMPHOCYTES # (AUTO) 1.55 x10^3/uL (1-3.4); LYMPHOCYTES % (AUTO) 15 % (22-44); MD NO; MEAN CORPUSCULAR HEMOGLOBIN 29.9 pg (27.0-34.8); MEAN CORPUSCULAR HGB CONC 31.4 g/dL (32.4-35.8); MEAN CORPUSCULAR VOLUME 95.4 fL (80-100); MONOCYTES # (AUTO) 0.73 x10^3/uL (0.2-0.8); MONOCYTES % (AUTO) 7 % (2-9); NEUTROPHILS # (AUTO) 7.58 x10^3/uL (1.8-6.8); NEUTROPHILS % (AUTO) 74 % (42-75); PLATELET COUNT 319 x10^3/uL (130-400); RED BLOOD COUNT 3.42 x10^6/uL (3.82-5.3); RED CELL DISTRIBUTION WIDTH 14.2 % (9.6-15.2)
[2019-10-06 05:01] LABS: ANION GAP 4 mmol/L (5-15); CALCIUM 9.3 mg/dL (8.5-10.1); CHLORIDE 104 mmol/L (98-107)
[2019-10-06 05:02] LABS: CREATININE 0.68 mg/dL (0.55-1.02)
[2019-10-06] MEDS: PIPERACILLIN/TAZO/PMX 3.375GM 50 ML IV SCH ×4 (05:03→23:16)
[2019-10-06 06:33] LABS: FIO2 55 %
[2019-10-06] MEDS ORDERED: POTASSIUM CHLORIDE 20 MEQ in SODIUM CHLORIDE 0.9% 250 ML IV ONE (07:30)
[2019-10-06] MEDS: LINEZOLID PMX 600MG/300ML 300 ML IV SCH ×2 (08:36→20:00)
[2019-10-06] MEDS: INSULIN GLARGINE 100 UNITS/ML, PEN SQ-INSULIN SCH ×2 (08:42→19:32)
[2019-10-06] MEDS: POTASSIUM CHLORIDE 10% 40 MEQ/30 ML UDC PO SCH ×2 (09:13→19:25)
[2019-10-06] MEDS: FUROSEMIDE 40 MG/4 ML IV SCH ×2 (09:13→19:25)
[2019-10-06] MEDS: PANTOPRAZOLE 40 MG IV IV SCH (09:13)
[2019-10-06] MEDS: METHYLNALTREXONE 12 MG/0.6 ML SYR SQ SCH (09:13)
[2019-10-06] MEDS: HEPARIN 5,000 UNITS/ML, 1ML SQ SCH ×2 (09:14→17:39)
[2019-10-06] MEDS: SODIUM CHLORIDE FLUSH 10ML SYR IVF SCH ×2 (09:14→19:26)
[2019-10-06] MEDS: SERTRALINE 100MG TABLET PO SCH ×2 (09:14→19:26)
[2019-10-06] MEDS: ACETAMINOPHEN 325 MG TABLET PO PRN ×2 (11:05→19:25)
[2019-10-06] MEDS: POTASSIUM CHLORIDE 10% 20 MEQ/15 ML UDC PO SCH ×2 (13:04→19:26)
[2019-10-06] MEDS ORDERED: CIPROFLOXACIN 750 MG TABLET PO SCH (13:30)
[2019-10-06] MEDS: LEVOFLOXACIN/PMX 750MG/150ML 150 ML IV SCH (17:39)
[2019-10-06] MEDS: SCOPOLAMINE 1MG PATCH TD SCH (17:48)
[2019-10-06] MEDS: ATORVASTATIN 20 MG TABLET PO SCH (19:26)
[2019-10-07] MEDS: PROPOFOL 100 ML IV PRN ×10 (01:04→23:30)
[2019-10-07] MEDS: HEPARIN 5,000 UNITS/ML, 1ML SQ SCH ×3 (02:03→16:17)
[2019-10-07] MEDS: ALBUTEROL/IPRATROPIUM 2.5MG/0.5MG, 3 ML INLINE SCH ×6 (02:20→23:30)
[2019-10-07] MEDS: INSULIN LISPRO 100 UNITS/ML, PEN SQ-INSULIN SCH ×4 (04:23→21:21)
[2019-10-07 04:31] LABS: BASOPHILS # (AUTO) 0.06 x10^3/uL (0-0.1); BASOPHILS % (AUTO) 1 % (0-1); EOSINOPHILS # (AUTO) 0.35 x10^3/uL (0-0.4); EOSINOPHILS % (AUTO) 4 % (1-7); LYMPHOCYTES # (AUTO) 1.72 x10^3/uL (1-3.4); LYMPHOCYTES % (AUTO) 17 % (22-44); MD NO; MEAN CORPUSCULAR HEMOGLOBIN 30.3 pg (27.0-34.8); MEAN CORPUSCULAR HGB CONC 31.7 g/dL (32.4-35.8); MEAN CORPUSCULAR VOLUME 95.7 fL (80-100); MEAN PLATELET VOLUME 8.8 fL (7.4-10.4); MONOCYTES # (AUTO) 0.62 x10^3/uL (0.2-0.8); MONOCYTES % (AUTO) 6 % (2-9); NEUTROPHILS % (AUTO) 73 % (42-75); PLATELET COUNT 318 x10^3/uL (130-400); RED BLOOD COUNT 3.42 x10^6/uL (3.82-5.3); RED CELL DISTRIBUTION WIDTH 14.1 % (9.6-15.2)
[2019-10-07 04:42] LABS: ANION GAP 4 mmol/L (5-15); CALCIUM 9.5 mg/dL (8.5-10.1); CHLORIDE 104 mmol/L (98-107); CREATININE 0.68 mg/dL (0.55-1.02)
[2019-10-07] MEDS: PIPERACILLIN/TAZO/PMX 3.375GM 50 ML IV SCH ×4 (05:25→21:18)
[2019-10-07] MEDS ORDERED: POTASSIUM CHLORIDE 10% 20 MEQ/15 ML UDC PO ONE ×2 (08:00→11:50)
[2019-10-07] MEDS ORDERED: FUROSEMIDE 40 MG/4 ML IV SCH (09:00)
[2019-10-07] MEDS: PANTOPRAZOLE 40 MG IV IV SCH (09:25)
[2019-10-07] MEDS: FUROSEMIDE 40 MG/4 ML IV SCH ×2 (09:25→16:17)
[2019-10-07] MEDS: SERTRALINE 100MG TABLET PO SCH ×2 (09:26→20:02)
[2019-10-07] MEDS: SODIUM CHLORIDE FLUSH 10ML SYR IVF SCH ×2 (09:26→20:03)
[2019-10-07] MEDS: INSULIN GLARGINE 100 UNITS/ML, PEN SQ-INSULIN SCH ×2 (09:26→21:19)
[2019-10-07] MEDS: LINEZOLID PMX 600MG/300ML 300 ML IV SCH ×2 (09:27→21:18)
[2019-10-07] MEDS: ACETAMINOPHEN 325 MG TABLET PO PRN ×2 (11:57→16:17)
[2019-10-07] MEDS: LEVOFLOXACIN/PMX 750MG/150ML 150 ML IV SCH (17:37)
[2019-10-07] MEDS: POTASSIUM CHLORIDE 10% 20 MEQ/15 ML UDC PO SCH (20:02)
[2019-10-07] MEDS: ATORVASTATIN 20 MG TABLET PO SCH (20:02)
[2019-10-07] MEDS: FENTANYL PF 100 MCG/2ML IVPush PRN (20:03)
[2019-10-08] MEDS: FUROSEMIDE 40 MG/4 ML IV SCH ×3 (00:57→20:21)
[2019-10-08] MEDS: HEPARIN 5,000 UNITS/ML, 1ML SQ SCH ×3 (01:25→18:46)
[2019-10-08] MEDS: PROPOFOL 100 ML IV PRN ×7 (02:40→21:57)
[2019-10-08] MEDS: ALBUTEROL/IPRATROPIUM 2.5MG/0.5MG, 3 ML INLINE SCH ×6 (03:00→22:27)
[2019-10-08] MEDS: FENTANYL PF 100 MCG/2ML IVPush PRN ×2 (04:40→09:03)
[2019-10-08 04:55] LABS: BASOPHILS # (AUTO) 0.05 x10^3/uL (0-0.1); BASOPHILS % (AUTO) 1 % (0-1); EOSINOPHILS % (AUTO) 4 % (1-7); LYMPHOCYTES # (AUTO) 1.77 x10^3/uL (1-3.4); LYMPHOCYTES % (AUTO) 16 % (22-44); MD NO; MEAN CORPUSCULAR HEMOGLOBIN 29.8 pg (27.0-34.8); MEAN CORPUSCULAR HGB CONC 31.5 g/dL (32.4-35.8); MEAN CORPUSCULAR VOLUME 94.8 fL (80-100); MEAN PLATELET VOLUME 9.4 fL (7.4-10.4); MONOCYTES # (AUTO) 0.58 x10^3/uL (0.2-0.8); MONOCYTES % (AUTO) 5 % (2-9); NEUTROPHILS # (AUTO) 8.08 x10^3/uL (1.8-6.8); NEUTROPHILS % (AUTO) 74 % (42-75); PLATELET COUNT 301 x10^3/uL (130-400); RED BLOOD COUNT 3.37 x10^6/uL (3.82-5.3)
[2019-10-08 05:06] LABS: ANION GAP 5 mmol/L (5-15); CALCIUM 9.3 mg/dL (8.5-10.1); CHLORIDE 102 mmol/L (98-107)
[2019-10-08 05:07] LABS: CREATININE 0.66 mg/dL (0.55-1.02); TRIGLYCERIDES 155 mg/dL (50-200)
[2019-10-08] MEDS: INSULIN LISPRO 100 UNITS/ML, PEN SQ-INSULIN SCH ×4 (05:18→20:35)
[2019-10-08] MEDS: PIPERACILLIN/TAZO/PMX 3.375GM 50 ML IV SCH ×3 (05:18→19:23)
[2019-10-08] MEDS: METHYLNALTREXONE 12 MG/0.6 ML SYR SQ SCH (08:59)
[2019-10-08] MEDS: SODIUM CHLORIDE FLUSH 10ML SYR IVF SCH ×2 (09:00→20:22)
[2019-10-08] MEDS: POTASSIUM CHLORIDE 10% 20 MEQ/15 ML UDC PO SCH ×2 (09:00→20:22)
[2019-10-08] MEDS: PANTOPRAZOLE 40 MG IV IV SCH (09:00)
[2019-10-08] MEDS: METOLAZONE 5 MG TABLET PO SCH ×2 (09:01→18:17)
[2019-10-08] MEDS: SERTRALINE 100MG TABLET PO SCH ×2 (09:01→20:21)
[2019-10-08] MEDS: LINEZOLID PMX 600MG/300ML 300 ML IV SCH ×2 (09:03→21:57)
[2019-10-08] MEDS: INSULIN GLARGINE 100 UNITS/ML, PEN SQ-INSULIN SCH ×2 (09:25→20:35)
[2019-10-08] MEDS: MIDAZOLAM HCL 50 MG in SODIUM CHLORIDE 0.9% 40 ML IV PRN (15:37)
[2019-10-08] MEDS: FENTANYL PF 1,000 MCG in SODIUM CHLORIDE 0.9% 80 ML IV PRN (15:42)
[2019-10-08] MEDS: ATORVASTATIN 20 MG TABLET PO SCH (20:22)
[2019-10-09] MEDS: PIPERACILLIN/TAZO/PMX 3.375GM 50 ML IV SCH ×4 (01:49→20:12)
[2019-10-09] MEDS: PROPOFOL 100 ML IV PRN ×9 (01:49→22:00)
[2019-10-09] MEDS: HEPARIN 5,000 UNITS/ML, 1ML SQ SCH ×4 (01:50→22:27)
[2019-10-09] MEDS: ALBUTEROL/IPRATROPIUM 2.5MG/0.5MG, 3 ML INLINE SCH ×6 (02:39→22:16)
[2019-10-09] MEDS: MIDAZOLAM HCL 50 MG in SODIUM CHLORIDE 0.9% 40 ML IV PRN (03:41)
[2019-10-09 04:21] LABS: BASOPHILS # (AUTO) 0.06 x10^3/uL (0-0.1); BASOPHILS % (AUTO) 1 % (0-1); EOSINOPHILS # (AUTO) 0.44 x10^3/uL (0-0.4); EOSINOPHILS % (AUTO) 4 % (1-7); LYMPHOCYTES # (AUTO) 1.64 x10^3/uL (1-3.4); LYMPHOCYTES % (AUTO) 14 % (22-44); MD NO; MEAN CORPUSCULAR HEMOGLOBIN 30.3 pg (27.0-34.8); MEAN CORPUSCULAR VOLUME 94.6 fL (80-100); MEAN PLATELET VOLUME 9.1 fL (7.4-10.4); MONOCYTES # (AUTO) 0.53 x10^3/uL (0.2-0.8); MONOCYTES % (AUTO) 5 % (2-9); NEUTROPHILS % (AUTO) 77 % (42-75); PLATELET COUNT 298 x10^3/uL (130-400); RED BLOOD COUNT 3.42 x10^6/uL (3.82-5.3); RED CELL DISTRIBUTION WIDTH 13.9 % (9.6-15.2)
[2019-10-09 04:33] LABS: ANION GAP 6 mmol/L (5-15); CALCIUM 9.3 mg/dL (8.5-10.1); CHLORIDE 99 mmol/L (98-107); CREATININE 0.76 mg/dL (0.55-1.02)
[2019-10-09] MEDS: INSULIN LISPRO 100 UNITS/ML, PEN SQ-INSULIN SCH ×4 (04:45→22:23)
[2019-10-09] MEDS ORDERED: POTASSIUM CHLORIDE 10% 40 MEQ/30 ML UDC PO ONE (06:00)
[2019-10-09] MEDS: SERTRALINE 100MG TABLET PO SCH ×2 (07:51→20:13)
[2019-10-09] MEDS: METOLAZONE 5 MG TABLET PO SCH ×2 (07:52→17:20)
[2019-10-09] MEDS: PANTOPRAZOLE 40 MG IV IV SCH (07:52)
[2019-10-09] MEDS: SODIUM CHLORIDE FLUSH 10ML SYR IVF SCH ×2 (07:52→20:12)
[2019-10-09] MEDS: POTASSIUM CHLORIDE 10% 20 MEQ/15 ML UDC PO SCH ×2 (07:53→20:12)
[2019-10-09] MEDS: FUROSEMIDE 40 MG/4 ML IV SCH ×2 (07:53→20:13)
[2019-10-09] MEDS: INSULIN GLARGINE 100 UNITS/ML, PEN SQ-INSULIN SCH ×2 (07:54→22:23)
[2019-10-09] MEDS: LINEZOLID PMX 600MG/300ML 300 ML IV SCH ×2 (10:19→22:23)
[2019-10-09] MEDS: FENTANYL PF 1,000 MCG in SODIUM CHLORIDE 0.9% 80 ML IV PRN (12:02)
[2019-10-09] MEDS: SCOPOLAMINE 1MG PATCH TD SCH (15:38)
[2019-10-09] MEDS: ATORVASTATIN 20 MG TABLET PO SCH (20:13)
[2019-10-10] MEDS: PIPERACILLIN/TAZO/PMX 3.375GM 50 ML IV SCH ×4 (01:45→18:05)
[2019-10-10] MEDS: ALBUTEROL/IPRATROPIUM 2.5MG/0.5MG, 3 ML INLINE SCH ×6 (02:09→23:30)
[2019-10-10] MEDS: HEPARIN 5,000 UNITS/ML, 1ML SQ SCH (04:53)
[2019-10-10 05:54] LABS: BASOPHILS # (AUTO) 0.03 x10^3/uL (0-0.1); BASOPHILS % (AUTO) 0 % (0-1); EOSINOPHILS # (AUTO) 0.48 x10^3/uL (0-0.4); EOSINOPHILS % (AUTO) 4 % (1-7); LYMPHOCYTES # (AUTO) 1.52 x10^3/uL (1-3.4); LYMPHOCYTES % (AUTO) 12 % (22-44); MD NO; MEAN CORPUSCULAR HEMOGLOBIN 29.9 pg (27.0-34.8); MEAN CORPUSCULAR HGB CONC 31.9 g/dL (32.4-35.8); MEAN CORPUSCULAR VOLUME 93.8 fL (80-100); MEAN PLATELET VOLUME 9.3 fL (7.4-10.4); MONOCYTES # (AUTO) 0.43 x10^3/uL (0.2-0.8); MONOCYTES % (AUTO) 3 % (2-9); NEUTROPHILS # (AUTO) 10.15 x10^3/uL (1.8-6.8); NEUTROPHILS % (AUTO) 81 % (42-75); PLATELET COUNT 308 x10^3/uL (130-400); RED BLOOD COUNT 3.54 x10^6/uL (3.82-5.3); RED CELL DISTRIBUTION WIDTH 14.5 % (9.6-15.2)
[2019-10-10] MEDS: PROPOFOL 100 ML IV PRN ×4 (06:03→21:59)
[2019-10-10 06:10] LABS: ANION GAP 4 mmol/L (5-15); CALCIUM 9.5 mg/dL (8.5-10.1); CHLORIDE 96 mmol/L (98-107)
[2019-10-10 06:11] LABS: CREATININE 0.74 mg/dL (0.55-1.02)
[2019-10-10] MEDS: INSULIN LISPRO 100 UNITS/ML, PEN SQ-INSULIN SCH ×4 (06:24→22:16)
[2019-10-10] MEDS: INSULIN GLARGINE 100 UNITS/ML, PEN SQ-INSULIN SCH ×2 (09:00→21:00)
[2019-10-10] MEDS: FUROSEMIDE 40 MG/4 ML IV SCH ×2 (09:18→21:59)
[2019-10-10] MEDS: PANTOPRAZOLE 40 MG IV IV SCH (09:18)
[2019-10-10] MEDS: POTASSIUM CHLORIDE 10% 20 MEQ/15 ML UDC PO SCH ×2 (09:18→21:59)
[2019-10-10] MEDS: METOLAZONE 5 MG TABLET PO SCH ×2 (09:19→18:04)
[2019-10-10] MEDS: METHYLNALTREXONE 12 MG/0.6 ML SYR SQ SCH (09:19)
[2019-10-10] MEDS: SODIUM CHLORIDE FLUSH 10ML SYR IVF SCH ×2 (09:20→22:17)
[2019-10-10] MEDS: SERTRALINE 100MG TABLET PO SCH ×2 (09:20→21:59)
[2019-10-10] MEDS: LINEZOLID PMX 600MG/300ML 300 ML IV SCH ×2 (11:06→21:59)
[2019-10-10] MEDS ORDERED: FENTANYL PF 100 MCG/2ML IVPush ONE (14:20)
[2019-10-10] MEDS ORDERED: MIDAZOLAM 1 MG/ML, 5ML IVPush ONE (14:20)
[2019-10-10] MEDS ORDERED: VECURONIUM 10 MG IVPush ONE (14:30)
[2019-10-10] MEDS: MIDAZOLAM HCL 50 MG in SODIUM CHLORIDE 0.9% 40 ML IV PRN ×2 (14:55→22:00)
[2019-10-10] MEDS: FENTANYL PF 1,000 MCG in SODIUM CHLORIDE 0.9% 80 ML IV PRN (18:05)
[2019-10-10] MEDS: ATORVASTATIN 20 MG TABLET PO SCH (21:59)
[2019-10-11] MEDS ORDERED: VECURONIUM 10 MG ONE
[2019-10-11] MEDS ORDERED: MIDAZOLAM 1 MG/ML, 5ML ONE
[2019-10-11] MEDS: MIDAZOLAM HCL 50 MG in SODIUM CHLORIDE 0.9% 40 ML IV PRN ×5 (01:54→23:25)
[2019-10-11] MEDS: PIPERACILLIN/TAZO/PMX 3.375GM 50 ML IV SCH ×2 (01:59→06:15)
[2019-10-11] MEDS: ALBUTEROL/IPRATROPIUM 2.5MG/0.5MG, 3 ML INLINE SCH ×6 (02:12→22:40)
[2019-10-11] MEDS: FENTANYL PF 1,000 MCG in SODIUM CHLORIDE 0.9% 80 ML IV PRN ×2 (04:35→15:09)
[2019-10-11 04:38] LABS: BASOPHILS # (AUTO) 0.14 x10^3/uL (0-0.1); BASOPHILS % (AUTO) 1 % (0-1); EOSINOPHILS % (AUTO) 4 % (1-7); LYMPHOCYTES # (AUTO) 1.19 x10^3/uL (1-3.4); LYMPHOCYTES % (AUTO) 9 % (22-44); MD NO; MEAN CORPUSCULAR HEMOGLOBIN 29.9 pg (27.0-34.8); MEAN CORPUSCULAR VOLUME 93.5 fL (80-100); MEAN PLATELET VOLUME 9.3 fL (7.4-10.4); MONOCYTES # (AUTO) 0.39 x10^3/uL (0.2-0.8); MONOCYTES % (AUTO) 3 % (2-9); NEUTROPHILS # (AUTO) 11.72 x10^3/uL (1.8-6.8); NEUTROPHILS % (AUTO) 84 % (42-75); PLATELET COUNT 322 x10^3/uL (130-400); RED BLOOD COUNT 3.79 x10^6/uL (3.82-5.3)
[2019-10-11 04:49] LABS: ANION GAP 4 mmol/L (5-15); CALCIUM 9.8 mg/dL (8.5-10.1); CHLORIDE 92 mmol/L (98-107); TRIGLYCERIDES 194 mg/dL (50-200)
[2019-10-11] MEDS: INSULIN LISPRO 100 UNITS/ML, PEN SQ-INSULIN SCH ×4 (05:06→22:03)
[2019-10-11] MEDS ORDERED: AcetaZOLAMIDE INJ 500 MG IVPush ONE (06:30)
[2019-10-11] MEDS: METOLAZONE 5 MG TABLET PO SCH ×2 (07:44→17:42)
[2019-10-11] MEDS: SODIUM CHLORIDE FLUSH 10ML SYR IVF SCH ×2 (07:44→22:02)
[2019-10-11] MEDS: SERTRALINE 100MG TABLET PO SCH ×2 (07:44→22:02)
[2019-10-11] MEDS: POTASSIUM CHLORIDE 10% 20 MEQ/15 ML UDC PO SCH ×2 (07:45→22:18)
[2019-10-11] MEDS: PANTOPRAZOLE 40 MG IV IV SCH (07:45)
[2019-10-11] MEDS: FUROSEMIDE 40 MG/4 ML IV SCH ×2 (07:45→22:03)
[2019-10-11] MEDS ORDERED: POTASSIUM CHLORIDE 40 MEQ in SODIUM CHLORIDE 0.9% 500 ML IV ONE (08:30)
[2019-10-11] MEDS: LINEZOLID PMX 600MG/300ML 300 ML IV SCH ×2 (09:35→22:02)
[2019-10-11] MEDS: INSULIN GLARGINE 100 UNITS/ML, PEN SQ-INSULIN SCH ×2 (12:29→22:05)
[2019-10-11] MEDS: ACETAMINOPHEN 325 MG TABLET PO PRN (15:42)
[2019-10-11] MEDS: ATORVASTATIN 20 MG TABLET PO SCH (22:02)
[2019-10-12] MEDS: FENTANYL PF 1,000 MCG in SODIUM CHLORIDE 0.9% 80 ML IV PRN (02:09)
[2019-10-12] MEDS: ALBUTEROL/IPRATROPIUM 2.5MG/0.5MG, 3 ML INLINE SCH ×6 (03:00→23:01)
[2019-10-12] MEDS: MIDAZOLAM HCL 50 MG in SODIUM CHLORIDE 0.9% 40 ML IV PRN ×2 (04:15→11:55)
[2019-10-12 04:41] LABS: MEAN CORPUSCULAR HGB CONC 31.6 g/dL (32.4-35.8); MEAN PLATELET VOLUME 9.3 fL (7.4-10.4); PLATELET COUNT 332 x10^3/uL (130-400); RED BLOOD COUNT 3.71 x10^6/uL (3.82-5.3); RED CELL DISTRIBUTION WIDTH 14.1 % (9.6-15.2)
[2019-10-12 04:53] LABS: ANION GAP 3 mmol/L (5-15); CALCIUM 9.6 mg/dL (8.5-10.1); CHLORIDE 95 mmol/L (98-107); CREATININE 0.84 mg/dL (0.55-1.02)
[2019-10-12] MEDS: INSULIN LISPRO 100 UNITS/ML, PEN SQ-INSULIN SCH ×4 (05:00→23:40)
[2019-10-12 05:43] LABS: BASOPHILS # (AUTO) 0.05 x10^3/uL (0-0.1); BASOPHILS % (AUTO) 0 % (0-1); EOSINOPHILS # (AUTO) 0.42 x10^3/uL (0-0.4); EOSINOPHILS % (AUTO) 4 % (1-7); LYMPHOCYTES # (AUTO) 1.53 x10^3/uL (1-3.4); LYMPHOCYTES % (AUTO) 13 % (22-44); MD SCAN; MONOCYTES # (AUTO) 0.59 x10^3/uL (0.2-0.8); MONOCYTES % (AUTO) 5 % (2-9); NEUTROPHILS # (AUTO) 9.27 x10^3/uL (1.8-6.8); NEUTROPHILS % (AUTO) 78 % (42-75)
[2019-10-12] MEDS ORDERED: POTASSIUM CHLORIDE 40 MEQ in SODIUM CHLORIDE 0.9% 500 ML IV ONE (06:00)
[2019-10-12] MEDS: METOLAZONE 5 MG TABLET PO SCH (07:30)
[2019-10-12] MEDS: PANTOPRAZOLE 40 MG IV IV SCH (09:40)
[2019-10-12] MEDS: POTASSIUM CHLORIDE 10% 20 MEQ/15 ML UDC PO SCH ×2 (09:41→21:15)
[2019-10-12] MEDS: METHYLNALTREXONE 12 MG/0.6 ML SYR SQ SCH (09:41)
[2019-10-12] MEDS: QUETIAPINE 25MG TABLET PEG SCH ×2 (09:41→21:15)
[2019-10-12] MEDS: SERTRALINE 100MG TABLET PO SCH ×2 (09:41→21:15)
[2019-10-12] MEDS: LINEZOLID PMX 600MG/300ML 300 ML IV SCH ×2 (09:41→21:30)
[2019-10-12] MEDS: SODIUM CHLORIDE FLUSH 10ML SYR IVF SCH ×2 (09:45→21:00)
[2019-10-12] MEDS: INSULIN GLARGINE 100 UNITS/ML, PEN SQ-INSULIN SCH ×2 (11:39→23:40)
[2019-10-12] MEDS: SCOPOLAMINE 1MG PATCH TD SCH (18:07)
[2019-10-12] MEDS: ATORVASTATIN 20 MG TABLET PO SCH (21:14)
[2019-10-13] MEDS: FENTANYL PF 1,000 MCG in SODIUM CHLORIDE 0.9% 80 ML IV PRN (01:43)
[2019-10-13] MEDS: MIDAZOLAM HCL 50 MG in SODIUM CHLORIDE 0.9% 40 ML IV PRN ×2 (03:07→06:12)
[2019-10-13] MEDS: ALBUTEROL/IPRATROPIUM 2.5MG/0.5MG, 3 ML INLINE SCH ×6 (03:18→23:30)
[2019-10-13] MEDS: INSULIN LISPRO 100 UNITS/ML, PEN SQ-INSULIN SCH ×4 (04:28→22:26)
[2019-10-13 04:49] LABS: BASOPHILS # (AUTO) 0.05 x10^3/uL (0-0.1); BASOPHILS % (AUTO) 0 % (0-1); EOSINOPHILS # (AUTO) 0.19 x10^3/uL (0-0.4); EOSINOPHILS % (AUTO) 1 % (1-7); LYMPHOCYTES # (AUTO) 1.72 x10^3/uL (1-3.4); LYMPHOCYTES % (AUTO) 12 % (22-44); MD NO; MEAN CORPUSCULAR HEMOGLOBIN 29.3 pg (27.0-34.8); MEAN CORPUSCULAR HGB CONC 31.4 g/dL (32.4-35.8); MEAN CORPUSCULAR VOLUME 93.4 fL (80-100); MEAN PLATELET VOLUME 9.6 fL (7.4-10.4); MONOCYTES # (AUTO) 0.75 x10^3/uL (0.2-0.8); MONOCYTES % (AUTO) 5 % (2-9); NEUTROPHILS # (AUTO) 11.27 x10^3/uL (1.8-6.8); NEUTROPHILS % (AUTO) 81 % (42-75); PLATELET COUNT 328 x10^3/uL (130-400); RED BLOOD COUNT 3.61 x10^6/uL (3.82-5.3); RED CELL DISTRIBUTION WIDTH 14.4 % (9.6-15.2)
[2019-10-13 04:59] LABS: ANION GAP 6 mmol/L (5-15); CALCIUM 9.7 mg/dL (8.5-10.1); CHLORIDE 98 mmol/L (98-107); CREATININE 0.68 mg/dL (0.55-1.02)
[2019-10-13] MEDS ORDERED: POTASSIUM CHLORIDE 40 MEQ in SODIUM CHLORIDE 0.9% 500 ML IV ONE (07:00)
[2019-10-13] MEDS: QUETIAPINE 25MG TABLET PEG SCH (08:09)
[2019-10-13] MEDS: POTASSIUM CHLORIDE 10% 20 MEQ/15 ML UDC PO SCH (08:09)
[2019-10-13] MEDS: SERTRALINE 100MG TABLET PO SCH (08:09)
[2019-10-13] MEDS: SODIUM CHLORIDE FLUSH 10ML SYR IVF SCH ×2 (08:10→22:29)
[2019-10-13] MEDS ORDERED: FUROSEMIDE 20 MG/2 ML IV SCH (08:30)
[2019-10-13] MEDS: [UNRECOGNIZED DRUG - REMARK] MC SCH ×2 (08:30→11:27)
[2019-10-13] MEDS: PANTOPRAZOLE 40 MG IV IV SCH (08:59)
[2019-10-13] MEDS: INSULIN GLARGINE 100 UNITS/ML, PEN SQ-INSULIN SCH ×2 (11:00→21:00)
[2019-10-13] MEDS: LINEZOLID PMX 600MG/300ML 300 ML IV SCH ×2 (11:16→22:29)
[2019-10-13 13:11] LABS: CLOSTRIDIUM DIFFICILE ANTIGEN NEGATIVE; CLOSTRIDIUM DIFFICILE TOXIN NEGATIVE (Negative)
[2019-10-13 14:24] LABS: FIO2 50 %
[2019-10-13] MEDS: ATORVASTATIN 20 MG TABLET PO SCH (20:02)
[2019-10-13] MEDS: POTASSIUM CHLORIDE 40 MEQ in SODIUM CHLORIDE 0.9% 500 ML IV SCH (20:22)
[2019-10-14] MEDS: FENTANYL PF 100 MCG/2ML IVPush PRN (00:12)
[2019-10-14] MEDS: ALBUTEROL/IPRATROPIUM 2.5MG/0.5MG, 3 ML INLINE SCH ×6 (02:32→23:15)
[2019-10-14] MEDS: INSULIN LISPRO 100 UNITS/ML, PEN SQ-INSULIN SCH ×4 (05:00→23:00)
[2019-10-14 06:05] LABS: CHLORIDE 101 mmol/L (98-107)
[2019-10-14 06:10] LABS: ANION GAP 4 mmol/L (5-15); CALCIUM 9.6 mg/dL (8.5-10.1); CREATININE 0.57 mg/dL (0.55-1.02); TRIGLYCERIDES 109 mg/dL (50-200)
[2019-10-14 07:04] LABS: BASOPHILS # (AUTO) 0.03 x10^3/uL (0-0.1); BASOPHILS % (AUTO) 0 % (0-1); EOSINOPHILS # (AUTO) 0.42 x10^3/uL (0-0.4); EOSINOPHILS % (AUTO) 4 % (1-7); LYMPHOCYTES % (AUTO) 12 % (22-44); MD NO; MEAN CORPUSCULAR HGB CONC 31.7 g/dL (32.4-35.8); MEAN CORPUSCULAR VOLUME 94.5 fL (80-100); MEAN PLATELET VOLUME 9.3 fL (7.4-10.4); MONOCYTES # (AUTO) 0.85 x10^3/uL (0.2-0.8); MONOCYTES % (AUTO) 7 % (2-9); NEUTROPHILS # (AUTO) 9.28 x10^3/uL (1.8-6.8); NEUTROPHILS % (AUTO) 77 % (42-75); PLATELET COUNT 331 x10^3/uL (130-400); RED BLOOD COUNT 3.84 x10^6/uL (3.82-5.3); RED CELL DISTRIBUTION WIDTH 14.3 % (9.6-15.2)
[2019-10-14] MEDS ORDERED: POTASSIUM CHLORIDE 40 MEQ in SODIUM CHLORIDE 0.9% 500 ML IV ONE (08:30)
[2019-10-14] MEDS ORDERED: AcetaZOLAMIDE INJ 500 MG IVPush ONE (08:30)
[2019-10-14] MEDS ORDERED: POTASSIUM CHLORIDE 20 MEQ TAB.ER.PRT PO ONE (08:30)
[2019-10-14] MEDS: SODIUM CHLORIDE FLUSH 10ML SYR IVF SCH ×2 (09:00→23:01)
[2019-10-14] MEDS: INSULIN GLARGINE 100 UNITS/ML, PEN SQ-INSULIN SCH ×2 (09:00→23:01)
[2019-10-14] MEDS: PANTOPRAZOLE 40 MG IV IV SCH (09:48)
[2019-10-14] MEDS: POTASSIUM CHLORIDE 40 MEQ in SODIUM CHLORIDE 0.9% 500 ML IV SCH ×2 (09:48→20:54)
[2019-10-14] MEDS: METHYLNALTREXONE 12 MG/0.6 ML SYR SQ SCH (09:48)
[2019-10-14] MEDS: LINEZOLID PMX 600MG/300ML 300 ML IV SCH ×2 (10:43→21:29)
[2019-10-14] MEDS: FUROSEMIDE 40 MG/4 ML IV SCH ×2 (10:44→17:35)
[2019-10-14] MEDS ORDERED: DEXMEDETOMIDINE 400 MCG in SODIUM CHLORIDE 0.9% 96 ML IV PRN (13:30)
[2019-10-14 16:10] LABS: ANION GAP 6 mmol/L (5-15); CALCIUM 9.7 mg/dL (8.5-10.1); CHLORIDE 103 mmol/L (98-107); CREATININE 0.61 mg/dL (0.55-1.02)
[2019-10-14] MEDS ORDERED: FUROSEMIDE 40 MG/4 ML IV SCH (17:00)
[2019-10-14] MEDS ORDERED: POTASSIUM CHLORIDE 20 MEQ in SODIUM CHLORIDE 0.9% 250 ML IV ONE (17:00)
[2019-10-14] MEDS: HEPARIN 5,000 UNITS/ML, 1ML SQ SCH (17:35)
[2019-10-14] MEDS: ATORVASTATIN 20 MG TABLET PO SCH (21:28)
[2019-10-15] MEDS: HEPARIN 5,000 UNITS/ML, 1ML SQ SCH ×3 (01:19→16:49)
[2019-10-15] MEDS: ALBUTEROL/IPRATROPIUM 2.5MG/0.5MG, 3 ML INLINE SCH ×6 (02:28→22:25)
[2019-10-15] MEDS: FENTANYL PF 100 MCG/2ML IVPush PRN ×2 (04:15→15:17)
[2019-10-15 04:42] LABS: BASOPHILS # (AUTO) 0.04 x10^3/uL (0-0.1); BASOPHILS % (AUTO) 0 % (0-1); EOSINOPHILS # (AUTO) 0.44 x10^3/uL (0-0.4); EOSINOPHILS % (AUTO) 4 % (1-7); LYMPHOCYTES # (AUTO) 1.12 x10^3/uL (1-3.4); LYMPHOCYTES % (AUTO) 11 % (22-44); MD NO; MEAN CORPUSCULAR VOLUME 93.6 fL (80-100); MEAN PLATELET VOLUME 9.3 fL (7.4-10.4); MONOCYTES # (AUTO) 0.55 x10^3/uL (0.2-0.8); MONOCYTES % (AUTO) 5 % (2-9); NEUTROPHILS # (AUTO) 8.07 x10^3/uL (1.8-6.8); NEUTROPHILS % (AUTO) 79 % (42-75); PLATELET COUNT 336 x10^3/uL (130-400); RED BLOOD COUNT 3.52 x10^6/uL (3.82-5.3); RED CELL DISTRIBUTION WIDTH 14.5 % (9.6-15.2)
[2019-10-15 04:54] LABS: ANION GAP 7 mmol/L (5-15); CALCIUM 9.6 mg/dL (8.5-10.1); CHLORIDE 106 mmol/L (98-107); CREATININE 0.65 mg/dL (0.55-1.02)
[2019-10-15] MEDS: INSULIN LISPRO 100 UNITS/ML, PEN SQ-INSULIN SCH ×4 (05:00→22:25)
[2019-10-15] MEDS ORDERED: POTASSIUM CHLORIDE 20 MEQ in SODIUM CHLORIDE 0.9% 250 ML IV ONE (08:30)
[2019-10-15] MEDS ORDERED: POTASSIUM CHLORIDE 10% 20 MEQ/15 ML UDC PO SCH (09:00)
[2019-10-15] MEDS ORDERED: POTASSIUM CHLORIDE 40 MEQ in SODIUM CHLORIDE 0.9% 500 ML IV SCH (09:00)
[2019-10-15] MEDS: PANTOPRAZOLE 40 MG IV IV SCH (09:41)
[2019-10-15] MEDS: SODIUM CHLORIDE FLUSH 10ML SYR IVF SCH ×2 (09:41→17:02)
[2019-10-15] MEDS: INSULIN GLARGINE 100 UNITS/ML, PEN SQ-INSULIN SCH ×2 (09:42→21:00)
[2019-10-15] MEDS: LINEZOLID PMX 600MG/300ML 300 ML IV SCH ×2 (10:47→22:27)
[2019-10-15] MEDS ORDERED: LACTATED RINGERS 1,000 ML IV SCH (11:00)
[2019-10-15 12:41] LABS: CLOSTRIDIUM DIFFICILE ANTIGEN NEGATIVE; CLOSTRIDIUM DIFFICILE TOXIN NEGATIVE (Negative)
[2019-10-15] MEDS: SCOPOLAMINE 1MG PATCH TD SCH (16:49)
[2019-10-15] MEDS: FUROSEMIDE 20 MG/2 ML IV SCH (16:49)
[2019-10-15] MEDS: POTASSIUM CHLORIDE 20 MEQ PACKET PO SCH (16:50)
[2019-10-15] MEDS ORDERED: POTASSIUM CHLORIDE 20 MEQ TAB.ER.PRT PO SCH (17:00)
[2019-10-15] MEDS ORDERED: MIRTAZAPINE 15 MG TABLET PO SCH (21:00)
[2019-10-15] MEDS: ATORVASTATIN 20 MG TABLET PO SCH (21:36)
[2019-10-16] MEDS: HEPARIN 5,000 UNITS/ML, 1ML SQ SCH ×2 (01:47→08:50)
[2019-10-16] MEDS: ALBUTEROL/IPRATROPIUM 2.5MG/0.5MG, 3 ML INLINE SCH ×4 (02:30→14:55)
[2019-10-16 04:39] LABS: BASOPHILS # (AUTO) 0.03 x10^3/uL (0-0.1); BASOPHILS % (AUTO) 0 % (0-1); EOSINOPHILS # (AUTO) 0.36 x10^3/uL (0-0.4); EOSINOPHILS % (AUTO) 4 % (1-7); LYMPHOCYTES # (AUTO) 1.18 x10^3/uL (1-3.4); LYMPHOCYTES % (AUTO) 14 % (22-44); MD NO; MEAN CORPUSCULAR HEMOGLOBIN 30.1 pg (27.0-34.8); MEAN PLATELET VOLUME 9.4 fL (7.4-10.4); MONOCYTES # (AUTO) 0.51 x10^3/uL (0.2-0.8); MONOCYTES % (AUTO) 6 % (2-9); NEUTROPHILS # (AUTO) 6.62 x10^3/uL (1.8-6.8); NEUTROPHILS % (AUTO) 76 % (42-75); PLATELET COUNT 327 x10^3/uL (130-400); RED BLOOD COUNT 3.51 x10^6/uL (3.82-5.3); RED CELL DISTRIBUTION WIDTH 14.2 % (9.6-15.2)
[2019-10-16 04:51] LABS: ANION GAP 6 mmol/L (5-15); CALCIUM 9.6 mg/dL (8.5-10.1); CHLORIDE 110 mmol/L (98-107)
[2019-10-16 04:52] LABS: CREATININE 0.57 mg/dL (0.55-1.02)
[2019-10-16] MEDS: INSULIN LISPRO 100 UNITS/ML, PEN SQ-INSULIN SCH ×2 (05:00→10:29)
[2019-10-16] MEDS: PANTOPRAZOLE 40 MG IV IV SCH (08:50)
[2019-10-16] MEDS: FUROSEMIDE 20 MG/2 ML IV SCH (08:50)
[2019-10-16] MEDS: INSULIN GLARGINE 100 UNITS/ML, PEN SQ-INSULIN SCH (08:51)
[2019-10-16] MEDS: SODIUM CHLORIDE FLUSH 10ML SYR IVF SCH (08:51)
[2019-10-16] MEDS: POTASSIUM CHLORIDE 20 MEQ PACKET PO SCH (08:51)
[2019-10-16] MEDS ORDERED: LINEZOLID PMX 600MG/300ML 300 ML IV SCH (10:00)
[2019-10-16] MEDS ORDERED: LACTATED RINGERS 1,000 ML IV SCH (11:00)
[2019-10-16] MEDS ORDERED: LORazepam 2 MG/ML, 1ML IVPush PRN (14:00)
== END 2019-10-16 16:24 | DRG 4 ==
LOC: ED 20:51 → 5SO 22:03 → CCU 09-26 00:38 → ICU 10-07 16:07 → CCU 10-08 18:38
PROVIDERS: ADMIT Family Medicine; ATTEND Internal Medicine
PROC: 5A1955Z Respiratory Ventilation, Greater than 96 Consecutive Hours (ICD-10-PCS; principal; 2019-09-26)
PROC: 0BH17EZ Insertion of Endotracheal Airway into Trachea, Via Natural or Artificial Opening (ICD-10-PCS; 2019-09-26)
PROC: 0T9B70Z Drainage of Bladder with Drainage Device, Via Natural or Artificial Opening (ICD-10-PCS; 2019-10-05)
PROC: 0B113F4 Bypass Trachea to Cutaneous with Tracheostomy Device, Percutaneous Approach (ICD-10-PCS; 2019-10-10)
PROC: 0DH63UZ Insertion of Feeding Device into Stomach, Percutaneous Approach (ICD-10-PCS; 2019-10-10)
PROC: 0BJ08ZZ Inspection of Tracheobronchial Tree, Via Natural or Artificial Opening Endoscopic (ICD-10-PCS; 2019-10-10)
DX: J44.1 Chronic obstructive pulmonary disease with (acute) exacerbation (principal); J96.22 Acute and chronic respiratory failure with hypercapnia; E43 Unspecified severe protein-calorie malnutrition; J96.21 Acute and chronic respiratory failure with hypoxia; Z99.11 Dependence on respirator [ventilator] status; Z68.44 Body mass index [BMI] 60.0-69.9, adult; J95.851 Ventilator associated pneumonia; N39.0 Urinary tract infection, site not specified; I50.42 Chronic combined systolic (congestive) and diastolic (congestive) heart failure; I11.0 Hypertensive heart disease with heart failure; E78.5 Hyperlipidemia, unspecified; F32.9 Major depressive disorder, single episode, unspecified; B96.1 Klebsiella pneumoniae [K. pneumoniae] as the cause of diseases classified elsewhere; B96.20 Unspecified Escherichia coli [E. coli] as the cause of diseases classified elsewhere; F41.9 Anxiety disorder, unspecified; Y84.8 Other medical procedures as the cause of abnormal reaction of the patient, or of later complication, without mention of misadventure at the time of the procedure; G89.29 Other chronic pain; E11.65 Type 2 diabetes mellitus with hyperglycemia; G47.33 Obstructive sleep apnea (adult) (pediatric); E66.01 Morbid (severe) obesity due to excess calories; Z87.891 Personal history of nicotine dependence; Z79.84 Long term (current) use of oral hypoglycemic drugs; Z83.1 Family history of other infectious and parasitic diseases; Z86.718 Personal history of other venous thrombosis and embolism; Z82.49 Family history of ischemic heart disease and other diseases of the circulatory system; Z80.1 Family history of malignant neoplasm of trachea, bronchus and lung; Z86.14 Personal history of Methicillin resistant Staphylococcus aureus infection; Z90.710 Acquired absence of both cervix and uterus; Z99.81 Dependence on supplemental oxygen; Z79.899 Other long term (current) drug therapy; M54.9 Dorsalgia, unspecified; Z20.828 Contact with and (suspected) exposure to other viral communicable diseases
CPT/HCPCS: 36415; 36600; 71045; 71275; 74018; 80048; 80053; 81001; 82040; 82330; 82803; 82962; 83036; 83615; 83735; 83880; 84100; 84145; 84478; 84484; 85025; 85379; 85610; 86738; 87040; 87070; 87077; 87081; 87086; 87147; 87186; 87205; 87324; 87581; 87633; 93005; 93970; 94002; 94003; 94150; 94640; 94660; 99285; B4087; C8929; G0378; J0696; J1644; J1940; J1956; J2020; J2060; J2250; J2543; J2704; J3010; J3370; J3480; J7613; Q9957; C9113; J0330; J1120; J1815; J7040; J7050; J7120